=== PATIENT | female | born 1965 | race Caucasian/White ===

== ENCOUNTER 2016-04-22 20:38 | Emergency (ER) | payer MEDICAID ==
[2016-04-22] MEDS ORDERED: IBUPROFEN 600 MG TABLET PO STA (21:02)
[2016-04-22] MEDS ORDERED: NEOMYCIN/POLYMYX/HC OTIC DROPS LEFTEAR STA (21:02)
[2016-04-22] MEDS ORDERED: IBUPROFEN 600 MG TABLET PO ONE (21:19)
[2016-04-22] MEDS ORDERED: NEOMYCIN/POLYMYX/HC OTIC DROPS ONE (21:20)
== END 2016-04-22 21:31 | disposition home or self-care (01) ==
DX: H60.92 Unspecified otitis externa, left ear (principal)
CPT/HCPCS: 99282; 99283; A9270

== ENCOUNTER 2016-05-07 | Emergency (ER) | payer OTHER, MEDICAID | END 2016-05-07 14:31 | disposition home or self-care (01) | CPT/HCPCS: 1040M; 99282; 99283 ==

== ENCOUNTER 2016-05-09 21:48 | Outpatient (CLI) | payer MEDICAID | END 2016-05-09 21:49 | disposition home or self-care (01) | DX: G47.61 Periodic limb movement disorder (principal) ==

== ENCOUNTER 2016-05-22 13:01 | Outpatient (CLI) | payer MEDICAID | END 2016-05-22 13:02 | disposition home or self-care (01) | DX: G47.61 Periodic limb movement disorder (principal); R06.83 Snoring ==

== ENCOUNTER 2016-07-02 14:59 | Outpatient (CLI) | payer MEDICAID | END 2016-07-02 15:00 | disposition home or self-care (01) | DX: G47.33 Obstructive sleep apnea (adult) (pediatric) (principal) ==

== ENCOUNTER 2016-08-27 13:50 | Outpatient (CLI) | payer MEDICAID | END 2016-08-27 13:51 | disposition home or self-care (01) | DX: G47.33 Obstructive sleep apnea (adult) (pediatric) (principal) ==

== ENCOUNTER 2016-09-23 10:44 | Inpatient (IN) | payer MEDICAID ==
[2016-09-23 11:19] LABS: BASOPHILS # (AUTO) 0.1 10^3/uL (0.0-0.1); BASOPHILS % (AUTO) 0.5 %; EOSINOPHILS # (AUTO) 0.2 10^3/uL (0.0-0.7); EOSINOPHILS % (AUTO) 1.6 %; HCT - HEMATOCRIT 40.6 % (37.0-47.0); HGB - HEMOGLOBIN 13.6 g/dL (12.0-16.0); LYMPHOCYTES # (AUTO) 2.1 10^3/uL (1.5-3.5); LYMPHOCYTES % (AUTO) 16.5 %; MEAN CORPUSCULAR HEMOGLOBIN 29.4 pg (27.0-31.0); MEAN CORPUSCULAR HGB CONC 33.5 g/dL (32.0-36.0); MEAN CORPUSCULAR VOLUME 87.9 fL (81.0-99.0); MEAN PLATELET VOLUME 7.5 fL (7.9-10.8); MONOCYTES # (AUTO) 0.8 10^3/uL (0.0-1.0); MONOCYTES % (AUTO) 6.6 %; NEUTROPHILS # (AUTO) 9.6 10^3/uL (1.5-6.6); NEUTROPHILS % (AUTO) 74.8 %; RED BLOOD COUNT 4.62 10^6/uL (4.20-5.40); RED CELL DISTRIBUTION WIDTH 13.6 % (12.0-15.0); UNCORRECTED WHITE BLOOD COUNT 12.8 x10^3/uL; WHITE BLOOD COUNT 12.8 x10^3/uL (4.8-10.8)
[2016-09-23 11:31] LABS: BILIRUBIN,TOTAL 0.7 mg/dL (0.2-1.0); CALCIUM 9.1 mg/dL (8.5-10.3); CREATININE 0.8 mg/dL (0.4-1.0); POTASSIUM 4.2 mmol/L (3.5-5.0); TOTAL PROTEIN 7.7 g/dL (6.7-8.2)
[2016-09-23] MEDS ORDERED: HYDROmorphone 1 MG/ML SYRINGE IVP STA (11:53)
[2016-09-23] MEDS ORDERED: ONDANSETRON 4 MG/2 ML VIAL IVP STA (11:53)
[2016-09-23] MEDS ORDERED: HYDROmorphone 1 MG/ML SYRINGE ONE (11:55)
[2016-09-23] MEDS ORDERED: ONDANSETRON 4 MG/2 ML VIAL ONE (11:55)
--- NOTE | 2016-09-23 12:00 | ED Physician Documentation ---
History of Present Illness - Stated complaint Stated Complaint: ABD PX - Chief complaint Chief Complaint: Abd Pain - Additonal information Additional information: hx from pt 51 female hx diverticulitis L abd pain X 1 week getting worse no fever nausea no vomit dec BM, had to use mag citrate, small blood in stool prior surgery c section Review of Systems Constitutional: denies: Fever, Chills Cardiac: denies: Chest pain / pressure Respiratory: denies: Dyspnea GI: reports: Abdominal Pain, Nausea. denies: Vomiting, Diarrhea Immunocompromised: denies: Immunocompromised PD PAST MEDICAL HISTORY - Past Medical History Psych: Depression - Past Surgical History Past Surgical History: No - Present Medications Home Medications: Ambulatory Orders Medication Instructions Recorded Confirmed buPROPion [Wellbutrin Sr] 1 tab PO DAILY 04/22/16 09/23/16 - Allergies Allergies/Adverse Reactions: Allergies Allergy/AdvReac Type Severity Reaction Status Date / Time No Known Drug Allergies Allergy Verified 09/23/16 10:48 - Social History Does the pt smoke?: No Smoking Status: Never smoker Does the pt drink ETOH?: Yes Does the pt have substance abuse?: No - Immunizations Immunizations are current?: Yes - POLST Patient has POLST: No PD ED PE NORMAL - Vitals Vital signs reviewed: Yes - General General: Alert and oriented X 3 - HEENT HEENT: PERRL - Neck Neck: Supple, no meningeal sign - Cardiac Cardiac: RRR - Respiratory Respiratory: No respiratory distress, Clear bilaterally - Abdomen Abdomen: Soft, Other (TTP L side with rebound lower > upper) - Derm Derm: Normal color - Neuro Neuro: Alert and oriented X 3 Results - Vitals Vitals: Vital Signs - 24 hr 09/23/16 09/23/16 10:47 12:31 Temperature 36.9 C Heart Rate 96 77 Respiratory 18 18 Rate Blood Pressure 144/103 H 132/88 H O2 Saturation 99 97 Oxygen O2 Source Room air - Labs Labs: Laboratory Tests 09/23/16 09/23/16 09/23/16 11:11 11:11 11:15 WBC 12.8 H RBC 4.62 Hgb 13.6 Hct 40.6 MCV 87.9 MCH 29.4 MCHC 33.5 RDW 13.6 Plt Count 288 MPV 7.5 L Neut # 9.6 H Lymph # 2.1 [place] # 0.8 Eos # 0.2 Baso # 0.1 Absolute Nucleated RBC 0.00 Nucleated RBCs 0.0 Sodium 136 Potassium 4.2 Chloride 101 Carbon Dioxide 26 Anion Gap 9.0 BUN 10 Creatinine 0.8 Estimated GFR (MDRD) 75 L Glucose 97 Calcium 9.1 Total Bilirubin 0.7 AST 15 ALT 18 Alkaline Phosphatase 106 Total Protein 7.7 Albumin 3.9 Globulin 3.8 Albumin/Globulin Ratio 1.0 Lipase 20 L Urine Color YELLOW Urine Clarity HAZY Urine pH 6.0 Ur Specific [place] 1.020 Urine Protein NEGATIVE Urine Glucose (UA) NEGATIVE Urine Ketones NEGATIVE Urine Occult Blood SMALL H Urine Nitrite NEGATIVE Urine Bilirubin NEGATIVE Urine Urobilinogen 0.2 (NORMAL) Ur Leukocyte Esterase NEGATIVE Urine RBC 0-5 Urine WBC 0-3 Ur Squamous Epith Cells FEW Squamous Urine Bacteria None Seen Ur Microscopic Review INDICATED Urine Culture Comments NOT INDICATED - Rads (name of study) CT abd pelvis Radiology: See rad report (acute sigmoid diverticulitis) PD MEDICAL DECISION MAKING - ED course ED course: acute divertic, no abscess or perf on CT, but pt with distension and peritoneal signs on exam d/w pt and both feel prudent to admit for NPO, IVF, IV antibiotics until she starts to improve spoke to hospitalist who will admit - inpt per hospitalist Departure - Departure Disposition: 66 [facility] DC/Xfer Clinical Impression: Diverticulitis of gastrointestinal tract Condition: Good
[2016-09-23 12:39] LABS: BILIRUBIN,URINE NEGATIVE (NEGATIVE)
[2016-09-23 12:44] LABS: UA w/ MICROSCOPIC CHARGE YES
[2016-09-23] MEDS ORDERED: IOPAMIDOL-300 100 ML VIAL IVP ONE (12:58)
[2016-09-23 13:25] LABS: UR CULTURE IF IND NOT INDICATED; WBC,URINE 0-3 /HPF (0-5)
--- NOTE | 2016-09-23 13:30 | CT Preliminary Report ---
Exam: CT Abdomen/Pelvis W/ IMPRESSION: Acute sigmoid diverticulitis. No drainable fluid collection or free air. [facility] SITE ID: [id number]
--- NOTE | 2016-09-23 13:33 | CT Report ---
EXAM: CT ABDOMEN AND PELVIS EXAM DATE: 09/23/2016 01:02 PM. CLINICAL HISTORY: Left sided abdominal pain COMPARISONS: None. TECHNIQUE: Routine helical CT imaging was performed through the abdomen and pelvis. IV contrast: 100 mL Isovue 300. Enteric contrast: No. Reconstructions: Coronal and sagittal. In accordance with CT protocol optimization, one or more of the following dose reduction techniques w ere utilized for this exam: automated exposure control, adjustment of mA and/or KV based on patient s ize, or use of iterative reconstructive technique. FINDINGS: Lung Bases: Unremarkable. Liver: Normal. No masses. Gallbladder/Bile Ducts: Unremarkable. Spleen: Normal. Pancreas: Normal. Adrenal Glands: Normal. Kidneys: Grossly unremarkable. Presence of early excreted contrast in the calyces and collecting syst em limits evaluation for presence of nonobstructing intrarenal calculi. No hydronephrosis. Peritoneal Cavity/Bowel: There is inflammatory stranding and fluid surrounding a loop of sigmoid colo n, which contains multiple diverticula. Findings are in keeping with diverticulitis. There is no drai nable fluid collection or herbie free air. No bowel obstruction.. The appendix is well visualized and normal. Pelvic Organs: Normal. The bladder and visualized pelvic organs are within normal limits. Retroverted uterus. Vasculature: No aneurysms or other significant abnormality. Bones: No significant abnormality. Other: None. IMPRESSION: Acute sigmoid diverticulitis. No drainable fluid collection or free air. [facility] Referring Provider Line: [phone] SITE ID: [id number]
[2016-09-23] MEDS ORDERED: PIPERACILLIN/TAZOBACTAM 3.375 GM in SODIUM CHLORIDE 0.9% MINIBAG 100 ML IV STA (13:54)
[2016-09-23] MEDS ORDERED: SODIUM CHLORIDE FLUSH 0.9% 10 ML SYRINGE IVP PRN (14:43)
--- NOTE | 2016-09-23 14:53 | HISTORY & PHYSICAL EXAMINATION ---
Chief Complaint - Chief Complaint Chief Complaint: abdominal pain History of Present Illness - Admitted From Admitted From:: Emergency department - History Obtained From Records Reviewed: Yes History obtained from: Patient Exam Limitations: None - History of Present Illness HPI Comment/Other: PT has a HX of diverticulitis with 4 major episodes since 2009. She as a HX of Hyperlipidemia and depression. PT is otherwise healthy. PT stated she was at her usual state of health until 5 days ago. She noted LLQ pain with nausea, chills. She thought this was similar to prior diverticulitis and she tried to treat with improved diet and OTC medications for constipation. She had a BM and now loose stools. She did not have improvement in her symptoms. PT came to the ED for evaluation. CT scan performed was consistent with diverticulitis without perforation. PT was started on ABX in the ED. Review of Systems - Constitutional Constitutional: reports: Fever, Chills. denies: Fatigue, Malaise, Weakness, Diaphoresis - Eyes Eyes: denies: Pain, Irritation - Ears, Nose & Throat Ears, Nose & Throat: denies: Ear pain, Hearing loss, Hearing aids - Cardiovascular Cariovascular: denies: Irregular heart rate, Palpitations, Chest pain, Edema - Respiratory Respiratory: denies: Cough, Sputum production, Wheezing, SOB at rest - Gastrointestinal Gastrointestinal: reports: Abdominal pain, Abdominal distention, Constipation, Diarrhea, Nausea. denies: Black stools, Vomiting - Genitourinary Genitourinary: denies: Dysuria, Frequency, Urgency - Musculoskeletal Musculoskeletal: denies: Muscle pain, Back pain, Muscle aches - Integumentary Integumentary: denies: Rash, Lesions, Lumps - Neurological Neurological: denies: General weakness, Focal weakness, Headache, Dizziness - Psychiatric Psychiatric: reports: Depression. denies: Anxiety, Suicidal - Endocrine Endocrine: denies: Polyuria, Polydypsia - Hematologic/Lymphatic Hematologic/Lymphatic: denies: Anemia, Bruising History - Past Medical History Cardiovascular: reports: High cholesterol. denies: Congestive heart failure, Hypertension, Coronary artery disease Respiratory: denies: Asthma, COPD Neuro: denies: CVA, TIA Endocrine/Autoimmune: reports: None GI: reports: Diverticulitis [employer] ASSISTANT: reports: None, Ovarian cysts HEENT: reports: None Psych: reports: Depression Musculoskeletal: reports: None Derm: reports: None MRSA Hx?: No - Past Surgical History General: denies: Cholecystectomy, Appendectomy Cardiovascular: denies: Coronary stent, Valve replacement Neuro: denies: Craniotomy HEENT: denies: Cataracts, Myringotomy (tubes) Derm: denies: Skin grafts - Family & Social History Family History: Mother: Cancer, Father: CAD, Sister: Cancer Living arrangement: At home - Substance History Use: Uses substance without health or social issues: Alcohol, Cannabis - POLST Patient has POLST: No POLST Status: Full Code Meds/Allgy - Home Medications Home Medications: Ambulatory Orders Medication Instructions Recorded Confirmed buPROPion [Wellbutrin Sr] 1 tab PO DAILY 04/22/16 09/23/16 - Allergies Allergies/Adverse Reactions: Allergies Allergy/AdvReac Type Severity Reaction Status Date / Time No Known Drug Allergies Allergy Verified 09/23/16 10:48 Exam - Vital Signs Reviewed Vital Signs: Yes Vital Signs: Vital Signs x48h Temp Pulse Resp BP Pulse Ox 09/23/16 13:56 84 18 131/95 H 97 09/23/16 12:31 77 18 132/88 H 97 09/23/16 10:47 36.9 C 96 18 144/103 H 99 - Physical Exam General Appearance: positive: No acute distress, Alert Eyes Bilateral: positive: Normal inspection, PERRL, EOMI ENT: positive: ENT inspection nml, Pharynx nml Neck: positive: Nml inspection, No JVD Respiratory: positive: Chest non-tender, No respiratory distress, Breath sounds nml Cardiovascular: positive: Regular rate & rhythm, No murmur, No gallop Peripheral Pulses: positive: 2+ Abdomen: positive: Tenderness, Guarding Back: positive: Nml inspection Skin: positive: No rash, Warm, Dry Extremities: positive: Non-tender, Full ROM, No pedal edema Neurologic/Psychiatric: positive: Oriented x3, CN's nml (2-12) Conclusion/Plan - Problem List (1) Diverticulitis of gastrointestinal tract Conclusion/Plan: Recurrent issues since 2009/ Current flair started 5 days prior to admission. Elevated WBC in ED> Afebrile dose not meet sepsis criteria./ Abdomin is soft and tender. Plan Admit to the hospital. Start on ABX> Will treat pain as needed (2) Depression Conclusion/Plan: Continue home medications. - Lab Results Lab results reviewed: Yes Gerardo Bones: 09/23/16 11:11 09/23/16 11:11 - Diagnostic Imaging Results Diagnostic Imaging Results: positive: Final report reviewed Issues/Core Measures - Anticipated LOS Anticipated Stay Length: 2 or more midnights - DVT/VTE - Prophylaxis VTE/DVT Device ordered at admit?: Yes VTE/DVT Prophylaxis med ordered at admit?: No Not Ordered - Medical Reason: Contraindicated
[2016-09-23] MEDS: HYDROmorphone 1 MG/ML SYRINGE IVP PRN ×2 (16:45→23:50)
[2016-09-23] MEDS: SODIUM CHLORIDE 0.9% 1,000 ML IV SCH ×2 (16:59→23:52)
[2016-09-23] MEDS ORDERED: PIPERACILLIN/TAZOBACTAM 3.375 GM in SODIUM CHLORIDE 0.9% MINIBAG 100 ML IV SCH (17:00)
[2016-09-23] MEDS: metroNIDAZOLE 500 MG/100 ML 100 ML IV SCH ×2 (17:00→21:30)
[2016-09-23] MEDS: PIPERACILLIN/TAZOBACTAM 3.375 GM in SODIUM CHLORIDE 0.9% MINIBAG 100 ML IV SCH (19:26)
[2016-09-23] MEDS: SODIUM CHLORIDE FLUSH 0.9% 10 ML SYRINGE IVP SCH (20:56)
[2016-09-23] MEDS: PANTOPRAZOLE 40 MG VIAL IVP SCH (21:30)
[2016-09-24] MEDS: PIPERACILLIN/TAZOBACTAM 3.375 GM in SODIUM CHLORIDE 0.9% MINIBAG 100 ML IV SCH ×3 (01:27→18:30)
[2016-09-24] MEDS: metroNIDAZOLE 500 MG/100 ML 100 ML IV SCH ×4 (04:27→21:01)
[2016-09-24] MEDS: SODIUM CHLORIDE 0.9% 1,000 ML IV SCH (04:28)
[2016-09-24] MEDS: SODIUM CHLORIDE FLUSH 0.9% 10 ML SYRINGE IVP SCH ×3 (05:01→21:01)
[2016-09-24] MEDS: POLYETHYLENE GLYCOL 3350 17 GM PACKET PO SCH (08:27)
[2016-09-24] MEDS: buPROPion SR 100 MG TABLET PO SCH (08:36)
[2016-09-24] MEDS: PANTOPRAZOLE 40 MG VIAL IVP SCH ×2 (08:36→21:01)
[2016-09-24] MEDS: HYDROmorphone 1 MG/ML SYRINGE IVP PRN ×2 (08:44→22:13)
--- NOTE | 2016-09-24 10:34 | PROVIDER PROGRESS NOTE ---
Assessment/Plan - Problem List (1) Diverticulitis of gastrointestinal tract Assessment/Plan: Pain has improved with antibiotic therapy. PT has not had a BM since admission. She has passed gas. Denies nausea and vomiting. Plan:Continue current medical therapy. Remain NPO. Ambulate multiple times today. Will advance to clear liquids once she has BM. Anticiapte home 1-2 days. PT should have colonoscopy. Can be done as OP if diverticulitis resolves. - Current Meds Current Meds: Current Medications Generic Name Dose Route Start Last Admin Trade Name Freq PRN Reason Stop Dose Admin Bupropion HCl 100 mg 09/24/16 09:00 09/24/16 08:36 Wellbutrin Sr PO 100 mg DAILY THERESA Administration Hydromorphone HCl 1 mg 09/23/16 14:43 09/24/16 08:44 Dilaudid Inj IVP 1 mg Q2HR PRN Administration Pain 8 to 10 Sodium Chloride 1,000 mls @ 100 mls/hr 09/23/16 15:00 09/24/16 04:28 Normal Saline 0.9% IV 100 mls/hr .Q10H THERESA Administration Metronidazole 100 mls @ 100 mls/hr 09/23/16 16:00 09/24/16 10:20 Flagyl 500 Mg/100 Ml IV 100 mls/hr Q6H THERESA Administration Piperacillin Sod/Tazobactam 100 mls @ 25 mls/hr 09/23/16 18:00 09/24/16 01:27 Sod 3.375 gm/ Sodium Chloride IV 25 mls/hr Q8H THERESA Administration Pantoprazole Sodium 40 mg 09/23/16 21:00 09/24/16 08:36 Protonix IVP 40 mg BID THERESA Administration Polyethylene Glycol 17 gm 09/24/16 09:00 09/24/16 08:27 Miralax PO Not Given DAILY THERESA Sodium Chloride 10 ml 09/23/16 14:43 09/24/16 08:36 Normal Saline Flush 0.9% IVP 10 ml PRN PRN Administration NEEDED PER PROVIDER ORDERS Sodium Chloride 10 ml 09/23/16 22:00 09/24/16 05:01 Normal Saline Flush 0.9% IVP Not Given Q8HR THERESA - Lab Result Lab results reviewed: Yes Fish Bone Diagrams: 09/23/16 11:11 09/23/16 11:11 - Diagnostic Imaging Results Diagnostic Imaging Results: positive: Final report reviewed - Additional Planning Condition/Complexity: Stable My Orders: My Active Orders 09/23/16 18:00 RT [Home CPAP/BiPAP] [RC] .ONCE Piperacillin/Tazobactam [Zosyn] 3.375 gm Sodium Chloride 0.9% Minibag [Normal Saline 0.9% Minibag] 100 ml IV Q8H 09/23/16 21:00 Pantoprazole [Protonix] 40 mg IVP BID Plan Discussed with:: Patient Time Spent: 15-30 minutes Subjective - Subjective Patient Reports: Feeling Better Nursing Reports: No Complaints Objective Vital Signs: Vital Signs - 24 hr 09/23/16 09/23/16 09/23/16 15:18 15:59 17:40 Temperature 36.5 C 36.5 C Heart Rate 85 Heart Rate [ 80 Brachial] Heart Rate [ 80 Monitoring electrodes] Respiratory 18 16 16 Rate Blood Pressure 118/84 H Blood Pressure [Left Brachial artery] Blood Pressure 134/86 H 134/86 H [Right Brachial artery] O2 Saturation 97 99 99 09/24/16 09/24/16 00:31 08:10 Temperature 36.7 C 36.5 C Heart Rate Heart Rate [ 73 77 Brachial] Heart Rate [ Monitoring electrodes] Respiratory 16 16 Rate Blood Pressure Blood Pressure 113/74 [Left Brachial artery] Blood Pressure 109/71 [Right Brachial artery] O2 Saturation 97 97 Oxygen O2 Source Room air I&O (Last 24 Hrs): Intake and Output Totals x24h 09/22/16 09/23/16 09/24/16 23:59 23:59 23:59 Intake Total 542 1004 Balance 542 1004 General: Alert, Oriented x3 HEENT: PERRLA, EOMI Neuro: Alert, CN 2-12 Grossly Intact Cardiovascular: Regular rate, No murmurs Respiratory: No respiratory distress, Breath sounds nml Abdomen: Other (tenderness to LLQ. Improved from admission) Extremities: No edema, Normal pulses Skin: No rashes, No breakdown - Results Results: Laboratory Results WBC 12.8 x10^3/uL (4.8-10.8) H 09/23/16 11:11 RBC 4.62 10^6/uL (4.20-5.40) 09/23/16 11:11 Hgb 13.6 g/dL (12.0-16.0) 09/23/16 11:11 Hct 40.6 % (37.0-47.0) 09/23/16 11:11 MCV 87.9 fL (81.0-99.0) 09/23/16 11:11 MCH 29.4 pg (27.0-31.0) 09/23/16 11:11 MCHC 33.5 g/dL (32.0-36.0) 09/23/16 11:11 RDW 13.6 % (12.0-15.0) 09/23/16 11:11 Plt Count 288 10^3/uL (130-450) 09/23/16 11:11 MPV 7.5 fL (7.9-10.8) L 09/23/16 11:11 Neut # 9.6 10^3/uL (1.5-6.6) H 09/23/16 11:11 Lymph # 2.1 10^3/uL (1.5-3.5) 09/23/16 11:11 Person # 0.8 10^3/uL (0.0-1.0) 09/23/16 11:11 Eos # 0.2 10^3/uL (0.0-0.7) 09/23/16 11:11 Baso # 0.1 10^3/uL (0.0-0.1) 09/23/16 11:11 Absolute Nucleated RBC 0.00 x10^3/uL 09/23/16 11:11 Nucleated RBCs 0.0 /100WBC 09/23/16 11:11 Sodium 136 mmol/L (135-145) 09/23/16 11:11 Potassium 4.2 mmol/L (3.5-5.0) 09/23/16 11:11 Chloride 101 mmol/L (101-111) 09/23/16 11:11 Carbon Dioxide 26 mmol/L (21-32) 09/23/16 11:11 Anion Gap 9.0 (6-13) 09/23/16 11:11 BUN 10 mg/dL (6-20) 09/23/16 11:11 Creatinine 0.8 mg/dL (0.4-1.0) 09/23/16 11:11 Estimated GFR (MDRD) 75 (>89) L 09/23/16 11:11 Glucose 97 mg/dL (70-100) 09/23/16 11:11 Calcium 9.1 mg/dL (8.5-10.3) 09/23/16 11:11 Total Bilirubin 0.7 mg/dL (0.2-1.0) 09/23/16 11:11 AST 15 IU/L (10-42) 09/23/16 11:11 ALT 18 IU/L (10-60) 09/23/16 11:11 Alkaline Phosphatase 106 IU/L (42-121) 09/23/16 11:11 Total Protein 7.7 g/dL (6.7-8.2) 09/23/16 11:11 Albumin 3.9 g/dL (3.2-5.5) 09/23/16 11:11 Globulin 3.8 g/dL (2.1-4.2) 09/23/16 11:11 Albumin/Globulin Ratio 1.0 (1.0-2.2) 09/23/16 11:11 Lipase 20 U/L (22-51) L 09/23/16 11:11 Urine Color YELLOW 09/23/16 11:15 Urine Clarity HAZY (CLEAR) 09/23/16 11:15 Urine pH 6.0 PH (5.0-7.5) 09/23/16 11:15 Ur Specific [place] 1.020 (1.002-1.030) 09/23/16 11:15 Urine Protein NEGATIVE mg/dL (NEGATIVE) 09/23/16 11:15 Urine Glucose (UA) NEGATIVE mg/dL (NEGATIVE) 09/23/16 11:15 Urine Ketones NEGATIVE mg/dL (NEGATIVE) 09/23/16 11:15 Urine Occult Blood SMALL (NEGATIVE) H 09/23/16 11:15 Urine Nitrite NEGATIVE (NEGATIVE) 09/23/16 11:15 Urine Bilirubin NEGATIVE (NEGATIVE) 09/23/16 11:15 Urine Urobilinogen 0.2 (NORMAL) E.U./dL (NORMAL) 09/23/16 11:15 Ur Leukocyte Esterase NEGATIVE (NEGATIVE) 09/23/16 11:15 Urine RBC 0-5 /HPF (0-5) 09/23/16 11:15 Urine WBC 0-3 /HPF (0-5) 09/23/16 11:15 Ur Squamous Epith Cells FEW Squamous (<= Few) 09/23/16 11:15 Urine Bacteria None Seen /HPF (None Seen) 09/23/16 11:15 Ur Microscopic Review INDICATED 09/23/16 11:15 Urine Culture Comments NOT INDICATED 09/23/16 11:15
[2016-09-24] MEDS: ONDANSETRON 4 MG/2 ML VIAL IVP PRN (11:30)
[2016-09-25] MEDS: SODIUM CHLORIDE 0.9% 1,000 ML IV SCH ×3 (00:15→17:42)
[2016-09-25] MEDS: PIPERACILLIN/TAZOBACTAM 3.375 GM in SODIUM CHLORIDE 0.9% MINIBAG 100 ML IV SCH (01:59)
[2016-09-25] MEDS: metroNIDAZOLE 500 MG/100 ML 100 ML IV SCH ×4 (04:37→21:44)
[2016-09-25] MEDS: SODIUM CHLORIDE FLUSH 0.9% 10 ML SYRINGE IVP SCH ×3 (05:11→22:13)
[2016-09-25 06:21] LABS: BASOPHILS # (AUTO) 0.1 10^3/uL (0.0-0.1); BASOPHILS % (AUTO) 0.7 %; EOSINOPHILS # (AUTO) 0.2 10^3/uL (0.0-0.7); EOSINOPHILS % (AUTO) 2.7 %; HCT - HEMATOCRIT 37.2 % (37.0-47.0); HGB - HEMOGLOBIN 12.3 g/dL (12.0-16.0); LYMPHOCYTES # (AUTO) 1.6 10^3/uL (1.5-3.5); MEAN CORPUSCULAR HGB CONC 33.2 g/dL (32.0-36.0); MEAN CORPUSCULAR VOLUME 90.2 fL (81.0-99.0); MEAN PLATELET VOLUME 7.7 fL (7.9-10.8); MONOCYTES # (AUTO) 0.4 10^3/uL (0.0-1.0); MONOCYTES % (AUTO) 5.3 %; NEUTROPHILS # (AUTO) 5.2 10^3/uL (1.5-6.6); NEUTROPHILS % (AUTO) 69.3 %; RED BLOOD COUNT 4.12 10^6/uL (4.20-5.40); RED CELL DISTRIBUTION WIDTH 13.5 % (12.0-15.0); UNCORRECTED WHITE BLOOD COUNT 7.5 x10^3/uL; WHITE BLOOD COUNT 7.5 x10^3/uL (4.8-10.8)
[2016-09-25] MEDS: POLYETHYLENE GLYCOL 3350 17 GM PACKET PO SCH (08:55)
[2016-09-25] MEDS: buPROPion SR 100 MG TABLET PO SCH (09:07)
--- NOTE | 2016-09-25 09:18 | PROVIDER PROGRESS NOTE ---
Assessment/Plan - Problem List (1) Diverticulitis of gastrointestinal tract Assessment/Plan: 51 yo female with multiple medical problems now with diverticulitis resolving Continue current medical management Advance diet as tolerated. Continue IV abx Primary medical team to manage. - Current Meds Current Meds: Current Medications Generic Name Dose Route Start Last Admin Trade Name Freq PRN Reason Stop Dose Admin Bupropion HCl 100 mg 09/24/16 09:00 09/25/16 09:07 Wellbutrin Sr PO 100 mg DAILY THERESA Administration Hydromorphone HCl 1 mg 09/23/16 14:43 09/24/16 22:13 Dilaudid Inj IVP 1 mg Q2HR PRN Administration Pain 8 to 10 Sodium Chloride 1,000 mls @ 100 mls/hr 09/23/16 15:00 09/25/16 00:15 Normal Saline 0.9% IV 100 mls/hr .Q10H THERESA Administration Metronidazole 100 mls @ 100 mls/hr 09/23/16 16:00 09/25/16 04:37 Flagyl 500 Mg/100 Ml IV 100 mls/hr Q6H THERESA Administration Levofloxacin 100 mls @ 100 mls/hr 09/25/16 08:00 09/25/16 09:07 Levaquin 500 Mg/100 Ml IV 100 mls/hr Q24H THERESA Administration Ondansetron HCl 4 mg 09/23/16 14:43 09/24/16 11:30 Zofran Inj IVP 4 mg Q6HR PRN Administration Nausea / Vomiting Polyethylene Glycol 17 gm 09/24/16 09:00 09/25/16 08:55 Miralax PO Not Given DAILY THERESA Sodium Chloride 10 ml 09/23/16 14:43 09/24/16 08:36 Normal Saline Flush 0.9% IVP 10 ml PRN PRN Administration NEEDED PER PROVIDER ORDERS Sodium Chloride 10 ml 09/23/16 22:00 09/25/16 05:11 Normal Saline Flush 0.9% IVP Not Given Q8HR THERESA - Lab Result Lab results reviewed: Yes Fish Bone Diagrams: 09/25/16 06:15 09/23/16 11:11 Subjective - Subjective Patient Reports: Feeling Better (Patient seen at bedside this am. States feeling better. Has not had BM yet. Tolerating clears. Ambulating. C/O of mild LLQ pain) Nursing Reports: No Complaints Objective Vital Signs: Vital Signs - 24 hr 09/24/16 09/25/16 09/25/16 17:03 01:25 08:40 Temperature 36.6 C 36.3 C L 36.5 C Heart Rate [ 80 68 70 Brachial] Respiratory 16 16 16 Rate Blood Pressure 101/62 114/76 [Left Brachial artery] Blood Pressure 127/85 H [Right Brachial artery] O2 Saturation 99 95 99 Oxygen O2 Source Room air I&O (Last 24 Hrs): Intake and Output Totals x24h 09/23/16 09/24/16 09/25/16 23:59 23:59 23:59 Intake Total 542 1676 1314 Output Total 400 Balance 542 1276 1314 General: Alert, Oriented x3 Neuro: Alert Cardiovascular: Regular rate Respiratory: Breath sounds nml Abdomen: Soft (+ Bs, mild TTP LLQ, no rebound or guarding) - Results Results: Laboratory Results WBC 7.5 x10^3/uL (4.8-10.8) 09/25/16 06:15 RBC 4.12 10^6/uL (4.20-5.40) L 09/25/16 06:15 Hgb 12.3 g/dL (12.0-16.0) 09/25/16 06:15 Hct 37.2 % (37.0-47.0) 09/25/16 06:15 MCV 90.2 fL (81.0-99.0) 09/25/16 06:15 MCH 30.0 pg (27.0-31.0) 09/25/16 06:15 MCHC 33.2 g/dL (32.0-36.0) 09/25/16 06:15 RDW 13.5 % (12.0-15.0) 09/25/16 06:15 Plt Count 253 10^3/uL (130-450) 09/25/16 06:15 MPV 7.7 fL (7.9-10.8) L 09/25/16 06:15 Neut # 5.2 10^3/uL (1.5-6.6) 09/25/16 06:15 Lymph # 1.6 10^3/uL (1.5-3.5) 09/25/16 06:15 [place] # 0.4 10^3/uL (0.0-1.0) 09/25/16 06:15 Eos # 0.2 10^3/uL (0.0-0.7) 09/25/16 06:15 Baso # 0.1 10^3/uL (0.0-0.1) 09/25/16 06:15 Absolute Nucleated RBC 0.00 x10^3/uL 09/25/16 06:15 Nucleated RBCs 0.0 /100WBC 09/25/16 06:15 Sodium 136 mmol/L (135-145) 09/23/16 11:11 Potassium 4.2 mmol/L (3.5-5.0) 09/23/16 11:11 Chloride 101 mmol/L (101-111) 09/23/16 11:11 Carbon Dioxide 26 mmol/L (21-32) 09/23/16 11:11 Anion Gap 9.0 (6-13) 09/23/16 11:11 BUN 10 mg/dL (6-20) 09/23/16 11:11 Creatinine 0.8 mg/dL (0.4-1.0) 09/23/16 11:11 Estimated GFR (MDRD) 75 (>89) L 09/23/16 11:11 Glucose 97 mg/dL (70-100) 09/23/16 11:11 Calcium 9.1 mg/dL (8.5-10.3) 09/23/16 11:11 Total Bilirubin 0.7 mg/dL (0.2-1.0) 09/23/16 11:11 AST 15 IU/L (10-42) 09/23/16 11:11 ALT 18 IU/L (10-60) 09/23/16 11:11 Alkaline Phosphatase 106 IU/L (42-121) 09/23/16 11:11 Total Protein 7.7 g/dL (6.7-8.2) 09/23/16 11:11 Albumin 3.9 g/dL (3.2-5.5) 09/23/16 11:11 Globulin 3.8 g/dL (2.1-4.2) 09/23/16 11:11 Albumin/Globulin Ratio 1.0 (1.0-2.2) 09/23/16 11:11 Lipase 20 U/L (22-51) L 09/23/16 11:11 Urine Color YELLOW 09/23/16 11:15 Urine Clarity HAZY (CLEAR) 09/23/16 11:15 Urine pH 6.0 PH (5.0-7.5) 09/23/16 11:15 Ur Specific [place] 1.020 (1.002-1.030) 09/23/16 11:15 Urine Protein NEGATIVE mg/dL (NEGATIVE) 09/23/16 11:15 Urine Glucose (UA) NEGATIVE mg/dL (NEGATIVE) 09/23/16 11:15 Urine Ketones NEGATIVE mg/dL (NEGATIVE) 09/23/16 11:15 Urine Occult Blood SMALL (NEGATIVE) H 09/23/16 11:15 Urine Nitrite NEGATIVE (NEGATIVE) 09/23/16 11:15 Urine Bilirubin NEGATIVE (NEGATIVE) 09/23/16 11:15 Urine Urobilinogen 0.2 (NORMAL) E.U./dL (NORMAL) 09/23/16 11:15 Ur Leukocyte Esterase NEGATIVE (NEGATIVE) 09/23/16 11:15 Urine RBC 0-5 /HPF (0-5) 09/23/16 11:15 Urine WBC 0-3 /HPF (0-5) 09/23/16 11:15 Ur Squamous Epith Cells FEW Squamous (<= Few) 09/23/16 11:15 Urine Bacteria None Seen /HPF (None Seen) 09/23/16 11:15 Ur Microscopic Review INDICATED 09/23/16 11:15 Urine Culture Comments NOT INDICATED 09/23/16 11:15
--- NOTE | 2016-09-25 09:27 | PROVIDER PROGRESS NOTE ---
Subjective - Prog Note Date Prog Note Date: 09/25/16 Prog Note Time: 09:25 - Subjective Pt reports feeling: Improved ("you couldnt have done that yesterday." (firm palpation of LLQ). still hurts right here > points (and puts my hand on LLQ). no emesis, nausea, hasnt moved bowels yet, excited about the clear liquids Later ~ 2:30 pm walking in halls w/ IV, feeling nauseated, is interested in starting full liquid) Current Medications - Current Medications Current Medications: Active Medications Generic Name Dose Route Start Last Admin Trade Name Freq PRN Reason Stop Dose Admin Bupropion HCl 100 mg 09/24/16 09:00 09/25/16 09:07 Wellbutrin Sr PO 100 mg DAILY THERESA Administration Hydromorphone HCl 1 mg 09/23/16 14:43 09/24/16 22:13 Dilaudid Inj IVP 1 mg Q2HR PRN Administration Pain 8 to 10 Sodium Chloride 1,000 mls @ 100 mls/hr 09/23/16 15:00 09/25/16 00:15 Normal Saline 0.9% IV 100 mls/hr .Q10H THERESA Administration Metronidazole 100 mls @ 100 mls/hr 09/23/16 16:00 09/25/16 04:37 Flagyl 500 Mg/100 Ml IV 100 mls/hr Q6H THERESA Administration Levofloxacin 100 mls @ 100 mls/hr 09/25/16 08:00 09/25/16 09:07 Levaquin 500 Mg/100 Ml IV 100 mls/hr Q24H THERESA Administration Ondansetron HCl 4 mg 09/23/16 14:43 09/24/16 11:30 Zofran Inj IVP 4 mg Q6HR PRN Administration Nausea / Vomiting Polyethylene Glycol 17 gm 09/24/16 09:00 09/25/16 08:55 Miralax PO Not Given DAILY THERESA Sodium Chloride 10 ml 09/23/16 14:43 09/24/16 08:36 Normal Saline Flush 0.9% IVP 10 ml PRN PRN Administration NEEDED PER PROVIDER ORDERS Sodium Chloride 10 ml 09/23/16 22:00 09/25/16 05:11 Normal Saline Flush 0.9% IVP Not Given Q8HR THERESA buPROPion [Wellbutrin Sr] 100 mg PO DAILY 01/08/17 Objective - Vital Signs/Intake & Output Reviewed Vital Signs: Yes Vital Signs: Vital Signs x48h Temp Pulse Resp BP Pulse Ox 09/25/16 08:40 36.5 C 70 16 127/85 H 99 Intake & Output: Intake & Output 09/22/16 09/23/16 09/24/16 09/25/16 23:59 23:59 23:59 23:59 Intake Total 542 1676 1314 Output Total 400 Balance 542 1276 1314 - Objective General Appearance: positive: No acute distress, Other (sitting up in bed taking clear liquid tray contents non toxic appearing, looks comfortable alert , oriented) Respiratory: positive: Chest non-tender, No respiratory distress, Breath sounds nml Cardiovascular: positive: Regular rate & rhythm Abdomen: positive: Other (rounded abdomen, soft, present but hypoactive bowel sounds , tender to palpation LLQ, no guarding, but winces on deep palpation at LLQ, otherwise able to palpate) Skin: positive: Warm, Dry (no edema) Neurologic/Psychiatric: positive: Oriented x3, Motor nml, Mood/affect nml - Lab Results Fish Bones: 09/25/16 06:15 09/23/16 11:11 Other Labs: Lab Results x24hrs 09/25/16 Range/Units 06:15 WBC 7.5 (4.8-10.8) x10^3/uL RBC 4.12 L (4.20-5.40) 10^6/uL Hgb 12.3 (12.0-16.0) g/dL Hct 37.2 (37.0-47.0) % MCV 90.2 (81.0-99.0) fL MCH 30.0 (27.0-31.0) pg MCHC 33.2 (32.0-36.0) g/dL RDW 13.5 (12.0-15.0) % Plt Count 253 (130-450) 10^3/uL MPV 7.7 L (7.9-10.8) fL Neut # 5.2 (1.5-6.6) 10^3/uL Lymph # 1.6 (1.5-3.5) 10^3/uL [place] # 0.4 (0.0-1.0) 10^3/uL Eos # 0.2 (0.0-0.7) 10^3/uL Baso # 0.1 (0.0-0.1) 10^3/uL Absolute Nucleated RBC 0.00 x10^3/uL Nucleated RBCs 0.0 /100WBC - Diagnostic Imaging Diagnostic Imaging Results: positive: Final report reviewed (CT from 09/23 reviewed; stranding/ fluid around loop of sigmoid colon which has multiple diverticula, c/w diverticulitis; no drainable fluid collection, no free air) Assessment/Plan - Problem List (1) Diverticulitis of gastrointestinal tract Impression: improving, pain improving, (but still present) and leukocytosis improved (12.8> 7.5). WAdmitted on zosyn/ flagyl; no indication for dual anaerobe coverage. Change to levo/flagyl (and PO levo/flagyl on d/c) recheck WBC in am continue serial exams, tolerated advance to clears this am , and for lunch, and advanced to fulls at dinner changing IV dilaudid (which she felt was too strong) to tramadol reeval in am and anticipate likely able to go Has been seen by general surgery, and she knows to contact Dr[facility] for surgical consult(since has had several episodes Depression: continue wellbutrin
[2016-09-25] MEDS: ONDANSETRON 4 MG/2 ML VIAL IVP PRN (17:00)
[2016-09-25] MEDS ORDERED: traMADol 50 MG TABLET PO PRN (18:04)
[2016-09-25] MEDS ORDERED: ZOLPIDEM 5 MG TABLET PO PRN (22:35)
[2016-09-26] MEDS: SODIUM CHLORIDE 0.9% 1,000 ML IV SCH (04:45)
[2016-09-26] MEDS: metroNIDAZOLE 500 MG/100 ML 100 ML IV SCH ×2 (04:45→10:39)
[2016-09-26] MEDS: SODIUM CHLORIDE FLUSH 0.9% 10 ML SYRINGE IVP SCH (05:58)
[2016-09-26 06:46] LABS: HCT - HEMATOCRIT 38.6 % (37.0-47.0); MEAN CORPUSCULAR HEMOGLOBIN 30.3 pg (27.0-31.0); MEAN CORPUSCULAR HGB CONC 33.8 g/dL (32.0-36.0); MEAN CORPUSCULAR VOLUME 89.6 fL (81.0-99.0); RED BLOOD COUNT 4.31 10^6/uL (4.20-5.40); RED CELL DISTRIBUTION WIDTH 13.5 % (12.0-15.0); WHITE BLOOD COUNT 7.8 x10^3/uL (4.8-10.8)
--- NOTE | 2016-09-26 09:46 | Discharge Plan ---
Discharge Plan Disposition: 01 Home, Self Care Condition: Stable Prescriptions: traMADol [Ultram] 50 mg PO Q4HR PRN #15 tablet PRN Reason: Pain Metronidazole [Flagyl] 500 mg PO Q8H #20 tablet Levofloxacin [Levaquin] 750 mg PO DAILY #6 tablet Diet: Regular (full liquid diet for the next day then advance to soft easily digested foods once pain fully resolved) Activity Restrictions: No Restrictions Shower Restrictions: No Driving Restrictions: No Weight Bearing: Full Weight Additional Instructions or Follow Up instructions: Diverticulitis You came to the hospital with several days of abdominal pain similar to prior episode of diverticulitis. CT abdomen confirmed diverticulitis (inflammatory stranding/fluid surrounding loop of sigmoid coon (left lower quadrant) No abscess YOu had a modestly elevated white blood cell count (12.8) which improved (7.8 on day of discharge) with antibiotics You will continue antibioticsx 7 more days levofloxacin 1x daily, and flagyl 500 mg every 8 hrs) (already got todays dose levofloxacin Call Dr. Masters office for discussion of possible surgical intervention for recurrent diverticulitis since you have had more than 1 episode at a relatively young age [phone] No Smoking: If you smoke, Please STOP! Call for help. Follow-up with: Drea Mondragon [employer] [Primary Care Provider] - 1-2 Days (ensure symptoms continue to improve (can likely do this over the phone as well, as long as no fever/chills, no new pain Consult with Dr. Myers as trini lemus)
[2016-09-26 10:02] VITALS: BP 135/86
[2016-09-26] MEDS: POLYETHYLENE GLYCOL 3350 17 GM PACKET PO SCH (10:08)
[2016-09-26] MEDS: buPROPion SR 100 MG TABLET PO SCH (10:30)
[2016-09-26] MEDS ORDERED: metroNIDAZOLE 250 MG TABLET PO SCH (11:00)
[2016-09-26] MEDS ORDERED: levoFLOXacin 250 MG TABLET PO SCH (11:00)
--- NOTE | 2016-09-26 13:11 | DISCHARGE SUMMARY ---
DATE OF ADMISSION: 09/23/2016 DATE OF DISCHARGE: 09/26/2016 PRIMARY CARE PHYSICIAN: Drea Mondragon DISCHARGE DIAGNOSIS: Diverticulitis. PROCEDURES: None. CONSULTATIONS: Dr. Alex Mcmillan,General Surgery. DIAGNOSTIC IMAGING STUDIES: CT abdomen and pelvis 09/23/2016 ; inflammatory stranding and fluid surrounding a loop of sigmoid colon which contains multiple diverticula consistent with diverticulitis. No drainable fluid collection or free herbie air. No obstruction. LABORATORY STUDIES: admission; Na 136, K 4.2, chloride 101, bicarbonate 26, BUN 10, Cr 0.8, glucose 97, lipase 20, AST and ALT 15 and 18 respectively, total protein 7.7, total bilirubin 0.7. CBC on admission showed white count 12.8 , hemoglobin 13.6, hematocrit 40.6, platelets 288,000. White count reduced to 7.8 on 09/25/2016 and remained reduced at 7.8 on the day of discharge, September 26. UA unremarkable. BRIEF HOSPITAL COURSE: The patient is a 51-year-old female who presented to the emergency room after approximately 5 days of left lower quadrant pain, which was reminiscent of her discomfort when she had a prior episode of diverticulitis. She reports having had 4 episodes since 2009 and has not previously had any discussion with a surgeon. She tried to treat this at home with a conservative diet and [id number] medicines for constipation; however, it did not improve. She was afebrile, but had had a modest leukocytosis , she was nontoxic-appearing, had left lower quadrant discomfort on minimal palpation. CT of the abdomen and pelvis was consistent with a sigmoid diverticulitis. She was treated with IV antibiotics and bowel rest and IV fluids. She tolerated diet advance to clears then subsequently to fulls with a resolution of leukocytosis and marked improvement of her abdominal pain and also did move her bowels twice on the night of 09/25/2016, and was feeling much improved on 09/26/2016 and ready for discharge. She will complete an additional 6 days of oral levofloxacin and Flagyl. Dr. Mcmillan of Surgery consulted and recommended she have an outpatient consultation with Dr. Myers, given that at her relatively young age she has had several episodes of diverticulitis, for possible surgical management to prevent future recurrences. She has the office number for Dr. Myers. She is aware to advance her diet only when she is completely comfortable, and will take another day of full liquids. DISCHARGE MEDICATIONS 1. Levofloxacin 750 mg once daily for 6 more doses, through October 02. Of note, she did receive today's dose in the hospital. 2. Flagyl 500 mg orally 3 times daily or every 8 hours for an additional 6 days ; this takes her through October 02. 3. Bupropion 100 mg once daily. 4. Tramadol 50 mg every 4 hours if needed for pain. She was given a small number of these, 15, in the event that there is any increased pain, but she is to also call primary if that is the case. PHYSICAL EXAMINATION ON DAY OF DISCHARGE VITAL SIGNS: Afebrile at 36.4, heart rate 71, blood pressure 135/86, respiratory rate 16, 97% to 100% oxygenation on room air. GENERAL: She is a very pleasant female who appears a little bit younger than stated age. She appears comfortable. She is smiling. She has completed her full liquid breakfast tray contents. She was also seen ambulating the halls yesterday. CHEST: Clear to auscultation with unlabored respirations. HEART: Regular S1, S2 with no appreciable extra sounds. ABDOMEN: Soft with quiet but present bowel sounds. She has only "mild" soreness at the left lower quadrant whereas she still grimaced and had tenderness on the prior day. EXTREMITIES: There is no lower extremity edema. JOB #: [id number] EXT JOB #:[id number] MTDD
== END 2016-09-26 11:30 | disposition home or self-care (01) | DRG 392 ==
LOC: ED 10:44 → MS 14:43
PROVIDERS: ADMIT Physician Assistant; ATTEND Nurse Practitioner
DX: K57.32 Diverticulitis of large intestine without perforation or abscess without bleeding (principal); F32.9 Major depressive disorder, single episode, unspecified
CPT/HCPCS: 36415; 74177; 80053; 81001; 81003; 83690; 85025; 87086; 96374; 96375; 99283; 99284

== ENCOUNTER 2016-10-19 11:01 | Outpatient (CLI) | payer MEDICAID | END 2016-10-19 11:02 | disposition home or self-care (01) | LOC: LAB.N 11:01 | PROVIDERS: ATTEND Nurse Practitioner Gerontology | DX: Z11.3 Encounter for screening for infections with a predominantly sexual mode of transmission (principal) | CPT/HCPCS: 36415; 86780; 86803; 87389 ==

== ENCOUNTER 2016-10-23 07:05 | Outpatient (CLI) | payer MEDICAID ==
[2016-10-23] MEDS ORDERED: IOPAMIDOL-300 50 ML VIAL PO ONE (09:15)
[2016-10-23] MEDS ORDERED: IOPAMIDOL-300 100 ML VIAL IVP ONE (09:15)
--- NOTE | 2016-10-23 12:22 | CT Report ---
CT ABDOMEN AND PELVIS WITH CONTRAST: 10/23/2016 CLINICAL INDICATION: Followup diverticulitis. COMPARISON: 09/23/2016 TECHNIQUE: Axial CT images of the abdomen and pelvis were obtained with 100 mL Isovue-300 intravenou sly as well as oral contrast. In accordance with CT protocol optimization, one or more of the following dose reduction techniques w ere utilized for this exam: automated exposure control, adjustment of mA and/or KV based on patient size, or use of iterative reconstructive technique. FINDINGS: Limited evaluation of the lung bases is unremarkable. Abdomen: The liver, spleen, pancreas, kidneys, and adrenal glands are unremarkable. The gallbladder is not dilated. No bowel dilatation, free gas, or free fluid is present. No abdominal adenopathy i s seen. Pelvis: Inflammation and wall thickening of the proximal sigmoid colon have improved significantly. The uterus is heterogeneous, likely representing multiple leiomyomas. No free gas, free fluid, or p elvic adenopathy is seen. IMPRESSION: SIGNIFICANT INTERVAL IMPROVEMENT IN INFLAMMATION AND WALL THICKENING OF THE PROXIMAL SIG MOID COLON. NO EVIDENCE OF PERFORATION OR ABSCESS FORMATION. JOB #: [id number] EXT JOB #:[id number]
== END 2016-10-23 07:06 | disposition home or self-care (01) ==
LOC: DI 07:05
PROVIDERS: ATTEND Surgery
DX: K57.92 Diverticulitis of intestine, part unspecified, without perforation or abscess without bleeding (principal)
CPT/HCPCS: 74177; Q9967

== ENCOUNTER 2016-11-08 11:32 | Day surgery (SDC) | payer MEDICAID ==
[2016-11-08] MEDS ORDERED: fentaNYL 100 MCG/2 ML VIAL IVP ONE (13:24)
[2016-11-08] MEDS ORDERED: ONDANSETRON 4 MG/2 ML VIAL IVP ONE (13:24)
[2016-11-08] MEDS ORDERED: MIDAZOLAM 2 MG/2 ML VIAL IVP ONE (13:24)
[2016-11-08] MEDS ORDERED: LACTATED RINGERS 1,000 ML IV ONE (13:26)
[2016-11-08 14:29] VITALS: BP 114/86
== END 2016-11-08 11:33 | disposition home or self-care (01) ==
LOC: SDS 11:32
PROVIDERS: ATTEND Surgery
PROC: 0DBM8ZX Excision of Descending Colon, Via Natural or Artificial Opening Endoscopic, Diagnostic (ICD-10-PCS; principal; 2016-11-08 12:30)
DX: K63.5 Polyp of colon (principal); K57.30 Diverticulosis of large intestine without perforation or abscess without bleeding; K64.8 Other hemorrhoids; K92.89 Other specified diseases of the digestive system; Z87.19 Personal history of other diseases of the digestive system; E66.9 Obesity, unspecified; E78.00 Pure hypercholesterolemia, unspecified; G47.30 Sleep apnea, unspecified; Z68.34 Body mass index [BMI] 34.0-34.9, adult
CPT/HCPCS: 45385; J7120; 88305

== ENCOUNTER 2016-11-10 14:07 | Emergency (ER) | payer MEDICAID ==
[2016-11-10] MEDS ORDERED: ONDANSETRON 4 MG/2 ML VIAL IVP STA (14:34)
[2016-11-10] MEDS ORDERED: HYDROmorphone 1 MG/ML SYRINGE IVP STA (14:34)
[2016-11-10] MEDS ORDERED: ONDANSETRON 4 MG/2 ML VIAL ONE (15:05)
[2016-11-10] MEDS ORDERED: HYDROmorphone 1 MG/ML SYRINGE ONE (15:05)
[2016-11-10 15:14] LABS: BASOPHILS # (AUTO) 0.1 10^3/uL (0.0-0.1); BASOPHILS % (AUTO) 0.6 %; EOSINOPHILS # (AUTO) 0.3 10^3/uL (0.0-0.7); EOSINOPHILS % (AUTO) 3.1 %; HCT - HEMATOCRIT 42.1 % (37.0-47.0); HGB - HEMOGLOBIN 14.4 g/dL (12.0-16.0); LYMPHOCYTES # (AUTO) 2.4 10^3/uL (1.5-3.5); MEAN CORPUSCULAR HGB CONC 34.2 g/dL (32.0-36.0); MEAN CORPUSCULAR VOLUME 87.7 fL (81.0-99.0); MEAN PLATELET VOLUME 8.1 fL (7.9-10.8); MONOCYTES # (AUTO) 0.5 10^3/uL (0.0-1.0); NEUTROPHILS # (AUTO) 5.4 10^3/uL (1.5-6.6); NEUTROPHILS % (AUTO) 62.3 %; RED CELL DISTRIBUTION WIDTH 13.5 % (12.0-15.0); UNCORRECTED WHITE BLOOD COUNT 8.7 x10^3/uL; WHITE BLOOD COUNT 8.7 x10^3/uL (4.8-10.8)
[2016-11-10 15:17] LABS: CALCIUM 9.6 mg/dL (8.5-10.3); CREATININE 0.8 mg/dL (0.4-1.0); POTASSIUM 3.7 mmol/L (3.5-5.0)
--- NOTE | 2016-11-10 15:22 | XRAY Preliminary Report ---
Exam: XR Abdomen 2 View IMPRESSION: No evidence of ileus or obstruction. Small amount of stool within the colon. [facility] SITE ID: [id number]
--- NOTE | 2016-11-10 15:24 | XRAY Report ---
EXAM: ABDOMEN RADIOGRAPHY EXAM DATE: 11/10/2016 02:50 PM. CLINICAL HISTORY: Abdominal pain, 2 days status post colonoscopy. COMPARISON: None. TECHNIQUE: 2 views. FINDINGS: Lung Bases: Unremarkable. Bowel Gas Pattern: No dilated loops of large or small intestine. Small amount of stool within the col on. Free Air: None. Other: None. IMPRESSION: No evidence of ileus or obstruction. Small amount of stool within the colon. ELISE Referring Provider Line: [phone] SITE ID: [id number]
--- NOTE | 2016-11-10 16:05 | ED Physician Documentation ---
PD HPI ABD PAIN - Stated complaint Stated Complaint: POST SURG COMPLICATIONS - Chief complaint Chief Complaint: Abd Pain - History obtained from History obtained from: Patient - History of Present Illness Timing - onset: Today Quality: Pain Location: LLQ Associated symptoms: Nausea. No: Fever, Vomiting Recently seen: Surgery (2 days status post colonoscopy with polyp resection.) - Additional information Additional information: The patient is a 51-year-old female who has a history of diverticular disease, and underwent colonoscopy with polyp resection 2 days ago, and who presents today after having a dark bloody stool and associated left-sided abdominal pain. She reports the stool was cranberry colored. She reports associated nausea, without vomiting. She denies fever, lightheadedness, or dysuria. Past surgical history is also significant for . Review of Systems Constitutional: denies: Fever, Fatigue Nose: denies: Congestion Throat: denies: Sore throat Cardiac: denies: Chest pain / pressure Respiratory: denies: Dyspnea, Cough GI: reports: Abdominal Pain, Nausea, Bloody / black stool. denies: Vomiting : denies: Dysuria Skin: denies: Rash Musculoskeletal: denies: Back pain Neurologic: denies: Focal weakness, Numbness, Headache PD PAST MEDICAL HISTORY - Past Medical History Past Medical History: Yes Cardiovascular: High cholesterol Respiratory: Sleep apnea, CPAP use, Other Endocrine/Autoimmune: None GI: Hemorrhoids, Diverticulitis SPECIAL EDUCATION ASSISTANT: None, Ovarian cysts : None HEENT: None Psych: Depression Musculoskeletal: None Derm: None - Past Surgical History Past Surgical History: Yes General: Colonoscopy (2 days ago) /SPECIAL EDUCATION ASSISTANT: section, Breast reduction - Present Medications Home Medications: Ambulatory Orders Medication Instructions Recorded Confirmed buPROPion [Wellbutrin Sr] 100 mg PO DAILY 04/22/16 11/08/16 Cyclosporine [Restasis] 1 drops EACHEYE BID 11/07/16 11/08/16 Rosuvastatin Calcium [Crestor] 20 mg PO DAILY 11/08/16 11/08/16 HYDROcod/ACETAM 5/325 [Vicodin 1 - 2 ea PO Q6H PRN #15 tablet 11/10/16 5/325] Promethazine [Phenergan] 25 - 50 mg PO Q6H PRN #10 tab 11/10/16 - Allergies Allergies/Adverse Reactions: Allergies Allergy/AdvReac Type Severity Reaction Status Date / Time tramadol HCl * [From Ultram] AdvReac Hallucinati Verified 11/10/16 14:16 ons - Social History Does the pt smoke?: No Smoking Status: Never smoker Does the pt drink ETOH?: Yes Does the pt have substance abuse?: No - Immunizations Immunizations are current?: Yes - POLST Patient has POLST: No POLST Status: Full Code PD ED PE NORMAL - Vitals Vital signs reviewed: Yes (mild hypertension initially.) - General General: Alert and oriented X 3, Well developed/nourished, Other (overweight) - HEENT HEENT: Atraumatic, EOMI, Pharynx benign - Neck Neck: No adenopathy, No JVD - Cardiac Cardiac: RRR, No murmur - Respiratory Respiratory: No respiratory distress, Clear bilaterally - Abdomen Abdomen: Normal bowel sounds, Soft, Non distended, No organomegaly, Other (Mild tenderness to palpation in the left mid abdomen, without rebound tenderness or guarding.) - Rectal Rectal: Other (Stool is brown and heme positive.) - Back Back: No CVA TTP - Derm Derm: No rash - Extremities Extremities: No edema, No calf tenderness / cord - Neuro Neuro: Alert and oriented X 3, No motor deficit, Normal speech PD ED PE EXPANDED - Rectal Rectal: Heme Occult Pos - QC + Results - Vitals Vitals: Vital Signs - 24 hr 11/10/16 11/10/16 14:11 16:15 Temperature 36.9 C 36.4 C L Heart Rate 68 83 Respiratory 18 17 Rate Blood Pressure 148/98 H 127/86 H O2 Saturation 97 96 Oxygen O2 Source Room air - Labs Labs: Laboratory Tests 11/10/16 11/10/16 15:00 15:00 WBC 8.7 RBC 4.80 Hgb 14.4 Hct 42.1 MCV 87.7 MCH 30.0 MCHC 34.2 RDW 13.5 Plt Count 266 MPV 8.1 Neut # 5.4 Lymph # 2.4 [place] # 0.5 Eos # 0.3 Baso # 0.1 Absolute Nucleated RBC 0.00 Nucleated RBCs 0.0 Sodium 139 Potassium 3.7 Chloride 108 Carbon Dioxide 25 Anion Gap 6.0 BUN 9 Creatinine 0.8 Estimated GFR (MDRD) 75 L Glucose 86 Calcium 9.6 - Rads (name of study) 2-view abdomen Radiology: Prelim report reviewed, EMP read contemporaneously, See rad report ( No evidence of ileus or obstruction. Small amount of stool within the colon.) PD MEDICAL DECISION MAKING - ED course Complexity details: reviewed old records, reviewed results, re-evaluated patient , considered differential, d/w patient ED course: The patient's presentation is significant for left-sided abdominal discomfort 2 days status post colonoscopy. She had one episode of rectal bleeding, with no recurrent episodes. Her rectal exam reveals brown Hemoccult positive stool. CBC and chemistry panel are completely normal, with a hemoglobin of 14.4. Two- view abdominal x-rays reveal no evidence of free air. Treatment in the emergency department included administration of hydromorphone 1 mg IV, and ondansetron 4 mg IV. On reexamination the patient's abdomen is benign. She is being discharged with prescriptions for Vicodin, 15 tablets, and Phenergan. I discussed with her the results of the workup, symptomatic treatment and outpatient follow-up, as well as potentially worrisome signs or symptoms that should prompt reevaluation in the emergency department. Departure - Departure Disposition: 01 Home, Self Care Clinical Impression: Heme positive stool, S/P colonoscopy with polypectomy Abdominal pain Qualifiers: Abdominal location: left lower quadrant Qualified Code(s): R10.32 - Left lower quadrant pain Condition: Stable Instructions: ED Abdominal Pain Unkn Cause Follow-Up: TRAVIS MYERS MD [Provider Admit Priv/Credential] - Prescriptions: HYDROcod/ACETAM 5/325 [Vicodin 5/325] 1 - 2 ea PO Q6H PRN #15 tablet PRN Reason: Pain Promethazine [Phenergan] 25 - 50 mg PO Q6H PRN #10 tab PRN Reason: Nausea / Vomiting Comments: Drink plenty of fluids. You can use Vicodin as prescribed as needed for pain. He continues Phenergan as prescribed if needed for nausea. Follow-up with Dr. Myers as planned. Return to the emergency department if you develop increasing abdominal pain, persistent vomiting, increasing rectal bleeding, or otherwise worsening symptoms. Discharge Date/Time: 11/10/16 16:15
[2016-11-10 16:18] VITALS: BP 127/86
== END 2016-11-10 16:15 | disposition home or self-care (01) ==
LOC: ED 14:07
DX: K92.1 Melena (principal); Z98.890 Other specified postprocedural states; R10.32 Left lower quadrant pain; E78.00 Pure hypercholesterolemia, unspecified; G47.30 Sleep apnea, unspecified; K64.9 Unspecified hemorrhoids
CPT/HCPCS: 36415; 74020; 80048; 85025; 96374; 96375; 99283; 99284; J1170

== ENCOUNTER 2016-11-15 15:49 | Outpatient (CLI) | payer MEDICAID ==
--- NOTE | 2016-11-28 17:48 | Mammography Report ---
DIGITAL BILATERAL SCREENING MAMMOGRAM: 11/15/2016 CLINICAL HISTORY: Asymptomatic 51-year-old female, family history of breast cancer, prior reduction m ammoplasty. TECHNIQUE: Routine CC and MLO projections were obtained of the breasts. Bilateral exaggerated CC vie ws. COMPARISON: None available at this time. FINDINGS: Scattered fibroglandular tissue is present within the breasts. There are no dominant paris s, suspicious microcalcifications, or secondary signs of malignancy. Postreduction changes are noted. Coarse, dystrophic calcifications in the left breast are likely the sequela of prior surgery. ASSESSMENT: NO MAMMOGRAPHIC EVIDENCE OF MALIGNANCY. NOTE: AN ADDENDUM WITH UPDATED IMPRESSION AND RECOMMENDATIONS WILL BE ISSUED IF OUTSIDE COMPARISONS B ECOME AVAILABLE. RECOMMENDATION: Screening mammography is recommended annually. BIRADS category 1 - negative. STANDARD QUALIFYING STATEMENTS 1. This examination was reviewed with the aid of Computed-Aided Detection (CAD). 2. A negative or benign imaging report should not delay biopsy if clinically suspicious findings are present. Consider surgical consultation if warranted. More than 5% of cancers are not identified by i maging. 3. Dense breasts may obscure an underlying neoplasm. JOB #: [id number] EXT JOB #:[id number]
== END 2016-11-15 15:50 | disposition home or self-care (01) ==
LOC: DI.N 15:49
PROVIDERS: ATTEND Nurse Practitioner Gerontology
DX: Z13.9 Encounter for screening, unspecified (principal); Z80.3 Family history of malignant neoplasm of breast
CPT/HCPCS: 77067

== ENCOUNTER 2016-12-04 10:17 | Outpatient (CLI) | payer MEDICAID ==
[2016-12-04 10:39] LABS: BASOPHILS # (AUTO) 0.1 10^3/uL (0.0-0.1); BASOPHILS % (AUTO) 0.8 %; EOSINOPHILS # (AUTO) 0.2 10^3/uL (0.0-0.7); EOSINOPHILS % (AUTO) 3.2 %; HCT - HEMATOCRIT 42.6 % (37.0-47.0); HGB - HEMOGLOBIN 14.6 g/dL (12.0-16.0); LYMPHOCYTES # (AUTO) 2.2 10^3/uL (1.5-3.5); LYMPHOCYTES % (AUTO) 29.1 %; MEAN CORPUSCULAR HEMOGLOBIN 30.1 pg (27.0-31.0); MEAN CORPUSCULAR HGB CONC 34.2 g/dL (32.0-36.0); MEAN PLATELET VOLUME 7.8 fL (7.9-10.8); MONOCYTES # (AUTO) 0.4 10^3/uL (0.0-1.0); MONOCYTES % (AUTO) 5.5 %; NEUTROPHILS # (AUTO) 4.6 10^3/uL (1.5-6.6); NEUTROPHILS % (AUTO) 61.4 %; RED BLOOD COUNT 4.84 10^6/uL (4.20-5.40); RED CELL DISTRIBUTION WIDTH 13.2 % (12.0-15.0); UNCORRECTED WHITE BLOOD COUNT 7.5 x10^3/uL; WHITE BLOOD COUNT 7.5 x10^3/uL (4.8-10.8)
[2016-12-04 11:49] LABS: CALCIUM 9.7 mg/dL (8.5-10.3); POTASSIUM 4.2 mmol/L (3.5-5.0)
== END 2016-12-04 10:18 | disposition home or self-care (01) ==
LOC: LAB 10:17
PROVIDERS: ATTEND Surgery
DX: K57.92 Diverticulitis of intestine, part unspecified, without perforation or abscess without bleeding (principal)
CPT/HCPCS: 36415; 80048; 85025

== ENCOUNTER 2016-12-11 06:06 | Inpatient (IN) | payer MEDICAID ==
[2016-12-11] MEDS ORDERED: LACTATED RINGERS 1,000 ML IV ONE ×3 (07:19→12:01)
[2016-12-11 07:25] LABS: HCG UR QUAL NEGATIVE
[2016-12-11] MEDS ORDERED: metroNIDAZOLE 500 MG/100 ML 100 ML ONE (07:31)
[2016-12-11] MEDS ORDERED: ceFAZolin 2 GM/50 ML 50 ML IV ONE (07:33)
[2016-12-11] MEDS ORDERED: BUPIVACAINE 0.5%-EPI 1:200000 PF 30 ML VIAL SUBQ ONE (08:14)
[2016-12-11] MEDS ORDERED: DEXAMETHASONE 4 MG/ML VIAL IVP ONE (08:30)
[2016-12-11] MEDS ORDERED: LABETALOL 5 MG/1 ML 20 ML MDV IV ONE (08:30)
[2016-12-11] MEDS ORDERED: KETOROLAC 30 MG/ML VIAL IVP ONE (08:30)
[2016-12-11] MEDS ORDERED: ONDANSETRON 4 MG/2 ML VIAL IVP ONE (08:30)
[2016-12-11] MEDS ORDERED: HYDROmorphone 1 MG/ML SYRINGE IVP ONE (08:30)
[2016-12-11] MEDS ORDERED: LIDOCAINE-MPF 2% 5 ML VIAL IM ONE (08:30)
[2016-12-11] MEDS ORDERED: ROCURONIUM 50 MG/5 ML VIAL IVP ONE (08:30)
[2016-12-11] MEDS ORDERED: MIDAZOLAM 2 MG/2 ML VIAL IVP ONE (08:30)
[2016-12-11] MEDS ORDERED: NEOSTIGMINE 1 MG/1 ML 10 ML MDV IVP ONE (08:30)
[2016-12-11] MEDS ORDERED: PROPOFOL 200 MG/20 ML VIAL IVP ONE (08:30)
[2016-12-11] MEDS ORDERED: GLYCOPYRROLATE 1 MG/5 ML VIAL IVP ONE (08:30)
[2016-12-11] MEDS ORDERED: ACETAMINOPHEN 1,000 MG/100 ML VIAL IV ONE (08:30)
[2016-12-11] MEDS ORDERED: fentaNYL 100 MCG/2 ML VIAL IVP ONE (08:30)
[2016-12-11] MEDS ORDERED: KETAMINE 500 MG/10 ML VIAL IVP ONE (08:30)
[2016-12-11] MEDS ORDERED: diphenhydrAMINE INJ 50 MG/ML VIAL IVP PRN (11:11)
[2016-12-11] MEDS ORDERED: SODIUM CHLORIDE FLUSH 0.9% 10 ML SYRINGE IVP PRN (11:11)
[2016-12-11] MEDS ORDERED: ONDANSETRON 4 MG/2 ML VIAL IVP PRN (11:11)
[2016-12-11] MEDS: LABETALOL 20 MG/4 ML SYRINGE IVP ONE ×3 (12:09→12:41)
[2016-12-11] MEDS: HYDROmorphone 1 MG/ML SYRINGE ONE ×3 (12:23→12:53)
--- NOTE | 2016-12-11 12:29 | OPERATIVE REPORT ---
DATE OF SURGERY: 12/11/2016 00:00:00 SURGEON: Davina Myers MD. RADIO INTERFERENCE INVESTIGATOR: Eliseo Kunz MD. PREOPERATIVE DIAGNOSIS: Recurrent diverticulitis. POSTOPERATIVE DIAGNOSIS: Recurrent diverticulitis. INDICATION FOR PROCEDURE: This is a 51-year-old female who presented to my office with complaints of repeated episodes of close interval uncomplicated diverticulitis. She underwent colonoscopic evaluation prior to proceeding with surgery and her colon was notable only for small polyps and isolated sigmoid diverticulosis. FINDINGS: After obtaining informed consent from the patient, she was brought into the operating room and positioned on the operating table in the lithotomy position, taking note of pressure points. She was intubated by Anesthesia. A Bliss catheter was inserted. She was administered 2 grams of Ancef and 500 mg of Flagyl. She was prepped and draped in the usual sterile fashion and a time- out was taken according to protocol. An infraumbilical 1 cm incision was created and deepened down to the umbilical stalk. This was grasped and elevated , and the Veress needle inserted and the abdominal cavity insufflated. An incision was made in the right lower lateral abdomen and using a 5 mm Optiview trocar the abdominal cavity was entered. The Veress needle was removed and was exchanged for a 12 mm port. The 5 mm port was also exchanged for a 12 mm port. An additional 5 mm port was placed in the suprapubic midline. The patient was positioned in Trendelenburg with the left side elevated. There were some adhesions of the sigmoid to the lateral side wall, which appeared to be the area of recurrent disease. The colon was elevated and a medial to lateral dissection approach was utilized. The colon was elevated at the level of the pelvic brim. The hook cautery was utilized to score the peritoneum. The underlying vascular pedicle was isolated using a combination of the [place] dissector and the LigaSure device. The pedicle was completely and circumferentially freed from the surrounding mesentery. The ureter was identified during this process and was protected during dissection. The Endo- ANTELMO 60 mm vascular load was utilized to transect the vascular pedicle. Upon transection, the stump was inspected, and no bleeding was noted. An additional branching vessel was similarly dissected out from the surrounding tissue and was clipped with 2 clips placed proximally, 1 distally, and was divided. I then began dissecting the mesentery down towards the area of the proposed distal site of transection. Again, the ureter was identified and protected during this process. I then turned my attention superiorly. The patient was then positioned in reverse Trendelenburg, and the mesentery was divided up towards the proposed line of proximal transection, which was noted to be the mid descending colon. The colon was then retracted medially and the lateral traction attachments were divided. I continued dividing the lateral attachments all the way up to the level of the spleen. There were some abnormal attachments of the colon to the spleen at this location. These were divided using the LigaSure. In order to have enough mobility of the mid descending colon, the splenic flexure was fully mobilized. This was done with a combination of blunt dissection and the LigaSure device. Again, the colon was very adherent to the spleen in this location and care was taken to carefully dissect the colonic adhesions from the spleen. At this point, I again turned my attention down to the level of the pelvis to ensure adequate mobilization of the colon had occurred. There was a persistent area of attachment of the colon to the lateral side wall at the level of the diverticular disease. This was carefully taken down with a combination of blunt dissection and the LigaSure. Again, the ureter was identified and was protected. At this point, the distal transection point was selected and the entire mesentery surrounding the colon at this location was divided using the LigaSure. The 60 mm Endo-ANTELMO with a blue load was then inserted and the colon was transected at this location. This was noted to be at the level of the convergence of the tinea. A reload was required to completely transect the colon. Very minimal bleeding was noted from the colonic stump. The proximal colon stump was then grasped and the patient was flattened and the umbilical port site incision was extended to approximately 3 cm. The fascia was also extended. A wound protecting device was then inserted and the proximal colon was brought out through the umbilical wound. The mesentery at the area of the proximal transection point was completely cleared from the colon using electrocautery. At this point, the pursestring device was placed on the colon and a 3-0 Prolene pursestring was created. The colon was then transected with a 10 blade and passed off. The pursestring device was opened and the 28 mm EEA anvil was inserted. The suture was then tied down and the stump was placed back into the abdominal cavity. The wound protecting device was twisted upon itself to allow for reinsufflation of the abdominal cavity. The patient was then positioned again in Trendelenburg and the family services assistant, after dilating the rectum, inserted the EEA stapler through the rectal stump. The stapling device was opened and the anvil was connected to the spike after ensuring there were no twists of the underlying mesentery. The device was then closed and fired. Upon removal of the stapling device, both donuts were inspected and were noted to be complete. An air test was then performed by flattening the patient and inserting saline into the pelvic cavity and inserting air through the rectum. No bubbles were seen. All irrigation fluid was suctioned out of the abdominal cavity and was noted to be clear. The right 12 mm port was then closed using a Tomas-Ritika device and a 0 Vicryl suture in a diumjx-wo-aclod fashion. All ports were then removed and the abdominal cavity was completely desufflated. The umbilical incision was then closed with a running 0 looped PDS. Subcutaneous tissue was irrigated. The skin incisions were then closed with 4-0 Monocryl and Dermabond was applied; 60 mL of local anesthetic was injected into the wounds prior to closure. The patient was then extubated and taken to recovery in stable condition. ESTIMATED BLOOD LOSS: 20 mL. URINE OUTPUT: 100 mL. CRYSTALLOID: 700 mL. COMPLICATIONS: None. SPECIMEN: Sigmoid colon. PROCEDURE: Laparoscopic assisted sigmoidectomy and mobilization of the splenic flexure. JOB #: [id number] EXT JOB #:[id number] NIRAV
[2016-12-11] MEDS: SODIUM CHLORIDE FLUSH 0.9% 10 ML SYRINGE IVP SCH ×2 (13:52→20:48)
[2016-12-11] MEDS: ACETAMINOPHEN 1,000 MG/100 ML 100 ML IV SCH ×3 (14:07→23:53)
[2016-12-11] MEDS: LACTATED RINGERS 1,000 ML IV SCH ×2 (14:07→19:50)
[2016-12-11] MEDS: MORPHINE PCA 50 MG IV PRN (17:34)
[2016-12-11] MEDS: NON FORMULARY MED (Cyclosporine [Restasis] 1 DROPS) EACHEYE SCH (20:48)
[2016-12-11] MEDS: CARBOXYMETHYLCELLULOSE OPHTH DROPS EACHEYE PRN (21:54)
[2016-12-12] MEDS: ACETAMINOPHEN 1,000 MG/100 ML 100 ML IV SCH ×4 (05:50→23:42)
[2016-12-12] MEDS: SODIUM CHLORIDE FLUSH 0.9% 10 ML SYRINGE IVP SCH ×3 (05:51→20:03)
[2016-12-12] MEDS: buPROPion SR 100 MG TABLET PO SCH (08:21)
[2016-12-12] MEDS: SENNA 8.6 MG TABLET PO SCH (08:21)
[2016-12-12] MEDS: NON FORMULARY MED (Cyclosporine [Restasis] 1 DROPS) EACHEYE SCH ×2 (08:22→20:03)
[2016-12-12] MEDS: LACTATED RINGERS 1,000 ML IV SCH ×2 (09:22→22:41)
--- NOTE | 2016-12-12 11:16 | PROVIDER PROGRESS NOTE ---
Subjective - General Admit Date: 12/11/16 Procedure Date: 12/11/16 Post Op Days: 1 Procedure Performed: laparoscopic sigmoidectomy - Review of Systems Wound/Incisions: positive: Healing well, Drainage General: positive: No symptoms Pulmonary: positive: No symptoms Cardiovascular: positive: No symptoms Gastrointestinal: positive: Abdominal pain Musculoskeletal: positive: No symptoms Psychiatric: positive: No symptoms Objective - Patient Data Reviewed Vital Signs: Yes Vital Signs: Vital Signs x48h Temp Pulse Resp BP Pulse Ox 12/12/16 10:00 14 12/12/16 08:19 37.1 C 58 L 16 99/67 97 12/12/16 08:00 16 12/12/16 05:53 16 12/12/16 05:13 36.2 C L 62 16 98/60 100 12/12/16 04:00 16 Intake & Output: Intake and Output Totals x24h 12/10/16 12/11/16 12/12/16 23:59 23:59 23:59 Intake Total 3625 938 Output Total 825 1650 Balance 2800 -712 - Lab Results Other Lab Results: Lab Results x24hrs 12/11/16 Range/Units 11:20 POC Whole Bld Glucose 150 H (70 - 100) mg/dL - Current Medications Current Medications: Current Medications Generic Name Dose Route Start Last Admin Trade Name Freq PRN Reason Stop Dose Admin Bupropion HCl 100 mg 12/12/16 09:00 12/12/16 08:21 Wellbutrin Sr PO 100 mg DAILY THERESA Administration Carboxymethylcellulose 1 drops 12/11/16 20:49 12/11/16 21:54 Refresh 1% Ophth Drops EACHEYE 1 drops PRN PRN Administration Dry Eye Lactated Ringer's 1,000 mls @ 75 mls/hr 12/11/16 12:00 12/12/16 09:22 Lr IV 75 mls/hr .[id number] THERESA Administration Acetaminophen 100 mls @ 400 mls/hr 12/11/16 12:00 12/12/16 05:50 Ofirmev IV 400 mls/hr Q6H THERESA Administration Morphine Sulfate/Sodium Chloride 0 mg 12/11/16 11:11 12/11/16 17:34 Morphine General Warehouse Associate (Use General Warehouse Associate Order Set) IV 50 mg SLACKLINE OPERATOR PRN Administration PAIN Protocol Non-Formulary Medication 1 drops 12/11/16 21:00 12/12/16 08:22 Cyclosporine [Restasis] EACHEYE Not Given BID THERESA Ondansetron HCl 4 mg 12/11/16 11:11 12/11/16 22:00 Zofran Inj IVP 4 mg Q6H PRN Administration Nausea / Vomiting Senna 8.6 mg 12/12/16 09:00 12/12/16 08:21 Senokot PO 8.6 mg DAILY THERESA Administration Sodium Chloride 10 ml 12/11/16 14:00 12/12/16 05:51 Normal Saline Flush 0.9% IVP Not Given Q8HR THERESA - Physical Exam Wound/Incisions: positive: Drainage, Other (minimal serosanguinous drainage from midline incision) General Appearance: positive: No acute distress Respiratory: positive: No respiratory distress Cardiovascular: positive: Regular rate & rhythm Abdomen: positive: Other (soft, non-distended, non-tender to light palpation) Extremities: positive: No pedal edema Neurologic/Psychiatric: positive: Oriented x3 Impression/Plan - Problem List Problem List: s/p lap sigmoidectomy POD 1 - encourage patient to ambulate. She has only been up to bathroom and states that she had a lot of pain with ambulation. I encouraged her to ambulated after receiving the dose of IV tylenol. SLACKLINE OPERATOR will continue - spencer DCed. Trial of void - Will place bacitracin on wound and change dressing daily. - continue clear liquids until patient has some bowel function. No flatus yet and occasional nausea - home meds with the exception of statin have been resumed. Will resume statin once patient is on a regular diet - start Lovenox DVT propylyaxis today
[2016-12-12] MEDS: ENOXAPARIN 40 MG/0.4 ML SYRINGE SUBQ SCH (11:47)
[2016-12-12] MEDS ORDERED: BACITRACIN OINT TOP PRN (15:13)
[2016-12-12] MEDS: MORPHINE PCA 50 MG IV PRN (17:45)
[2016-12-12] MEDS: CARBOXYMETHYLCELLULOSE OPHTH DROPS EACHEYE PRN (20:02)
[2016-12-13] MEDS: SODIUM CHLORIDE FLUSH 0.9% 10 ML SYRINGE IVP SCH ×3 (05:17→22:04)
[2016-12-13] MEDS: ACETAMINOPHEN 1,000 MG/100 ML 100 ML IV SCH ×3 (05:28→19:44)
[2016-12-13] MEDS: SENNA 8.6 MG TABLET PO SCH (08:54)
[2016-12-13] MEDS: buPROPion SR 100 MG TABLET PO SCH (08:54)
[2016-12-13] MEDS: ENOXAPARIN 40 MG/0.4 ML SYRINGE SUBQ SCH (08:55)
[2016-12-13] MEDS: CARBOXYMETHYLCELLULOSE OPHTH DROPS EACHEYE PRN ×2 (08:55→21:59)
[2016-12-13] MEDS: NON FORMULARY MED (Cyclosporine [Restasis] 1 DROPS) EACHEYE SCH ×2 (08:59→22:04)
--- NOTE | 2016-12-13 09:42 | PROVIDER PROGRESS NOTE ---
Subjective - General Admit Date: 12/11/16 Procedure Date: 12/11/16 Post Op Days: 2 Procedure Performed: laparoscopic sigmoidectomy - Review of Systems Wound/Incisions: positive: Dressing dry and intact General: positive: Other (difficulty sleeping last night) Pulmonary: positive: No symptoms Cardiovascular: positive: No symptoms Gastrointestinal: positive: Abdominal pain Musculoskeletal: positive: No symptoms Psychiatric: positive: No symptoms Objective - Patient Data Reviewed Vital Signs: Yes Vital Signs: Vital Signs x48h Temp Pulse Resp BP Pulse Ox 12/13/16 07:56 36.5 C 77 19 106/66 98 12/13/16 05:22 16 12/13/16 05:00 36.4 C L 60 16 128/79 99 Intake & Output: Intake and Output Totals x24h 12/11/16 12/12/16 12/13/16 23:59 23:59 23:59 Intake Total 3625 3176 783 Output Total 825 2650 400 Balance 2800 526 383 - Lab Results Other Lab Results: Lab Results x24hrs 12/11/16 12/11/16 Range/Units 20:16 16:19 POC Whole Bld Glucose 125 H 127 H (70 - 100) mg/dL - Current Medications Current Medications: Current Medications Generic Name Dose Route Start Last Admin Trade Name Freq PRN Reason Stop Dose Admin Bacitracin 1 packet 12/12/16 15:13 12/12/16 18:23 Bacitracin TOP 2 packet PRN PRN Administration Skin Care Bupropion HCl 100 mg 12/12/16 09:00 12/13/16 08:54 Wellbutrin Sr PO 100 mg DAILY THERESA Administration Carboxymethylcellulose 1 drops 12/11/16 20:49 12/13/16 08:55 Refresh 1% Ophth Drops EACHEYE 1 drops PRN PRN Administration Dry Eye Enoxaparin Sodium 40 mg 12/12/16 12:00 12/13/16 08:55 Lovenox SUBQ 40 mg DAILY THERESA Administration Lactated Ringer's 1,000 mls @ 75 mls/hr 12/11/16 12:00 12/12/16 22:41 Lr IV 75 mls/hr .[id number] THERESA Administration Acetaminophen 100 mls @ 400 mls/hr 12/11/16 12:00 12/13/16 05:28 Ofirmev IV 400 mls/hr Q6H THERESA Administration Morphine Sulfate/Sodium Chloride 0 mg 12/11/16 11:11 12/12/16 17:45 Morphine Business Office Assistant (Use Business Office Assistant Order Set) IV 50 mg TRANSPORT RN PRN Administration PAIN Protocol Non-Formulary Medication 1 drops 12/11/16 21:00 12/13/16 08:59 Cyclosporine [Restasis] EACHEYE 1 drops BID THERESA Administration Ondansetron HCl 4 mg 12/11/16 11:11 12/11/16 22:00 Zofran Inj IVP 4 mg Q6H PRN Administration Nausea / Vomiting Senna 8.6 mg 12/12/16 09:00 12/13/16 08:54 Senokot PO 8.6 mg DAILY THERESA Administration Sodium Chloride 10 ml 12/11/16 14:00 12/13/16 05:17 Normal Saline Flush 0.9% IVP Not Given Q8HR THERESA - Physical Exam Wound/Incisions: positive: Dressing dry and intact, No drainage. negative: Erythema General Appearance: positive: No acute distress Respiratory: positive: No respiratory distress Cardiovascular: positive: Regular rate & rhythm Abdomen: positive: No distention Extremities: positive: No pedal edema Neurologic/Psychiatric: positive: Oriented x3 Impression/Plan - Problem List Problem List: s/p lap sigmoidectomy POD 2 - Patient is slow to ambulate. I have again stressed the importance of mobilization - No flatus. Con't clear liquids until bowel function present - Lovenox started for DVT prophylaxis - Will continue TRANSPORT RN until soft diet started then will transition to oral pain meds
[2016-12-13] MEDS: LACTATED RINGERS 1,000 ML IV SCH (11:46)
[2016-12-13] MEDS: MORPHINE PCA 50 MG IV PRN (16:30)
[2016-12-14] MEDS: ACETAMINOPHEN 1,000 MG/100 ML 100 ML IV SCH ×3 (00:31→12:32)
[2016-12-14] MEDS: LACTATED RINGERS 1,000 ML IV SCH ×2 (01:12→15:01)
[2016-12-14] MEDS: SODIUM CHLORIDE FLUSH 0.9% 10 ML SYRINGE IVP SCH ×3 (06:24→19:03)
[2016-12-14] MEDS: buPROPion SR 100 MG TABLET PO SCH (08:22)
[2016-12-14] MEDS: NON FORMULARY MED (Cyclosporine [Restasis] 1 DROPS) EACHEYE SCH ×2 (08:24→19:03)
[2016-12-14] MEDS: CARBOXYMETHYLCELLULOSE OPHTH DROPS EACHEYE PRN ×2 (08:25→23:35)
[2016-12-14] MEDS: ENOXAPARIN 40 MG/0.4 ML SYRINGE SUBQ SCH (08:26)
[2016-12-14] MEDS: oxyCOD/ACETAMIN 5 MG/325 MG TABLET PO PRN ×4 (09:35→23:36)
--- NOTE | 2016-12-14 10:30 | PROVIDER PROGRESS NOTE ---
Subjective - General Admit Date: 12/11/16 Procedure Date: 12/11/16 Post Op Days: 3 Procedure Performed: laparoscopic sigmoidectomy - Review of Systems Wound/Incisions: positive: Dressing dry and intact, No drainage. negative: Erythema General: positive: Other (still without bowel function) Pulmonary: positive: No symptoms Cardiovascular: positive: No symptoms Gastrointestinal: positive: Abdominal pain (improved). negative: Nausea, Vomiting, Flatus Musculoskeletal: positive: No symptoms Psychiatric: positive: No symptoms Objective - Patient Data Reviewed Vital Signs: Yes Vital Signs: Vital Signs x48h Temp Pulse Resp BP Pulse Ox 12/14/16 08:00 36.8 C 65 18 156/97 H 95 12/14/16 06:00 16 12/14/16 02:38 16 Intake & Output: Intake and Output Totals x24h 12/12/16 12/13/16 12/14/16 23:59 23:59 23:59 Intake Total 3176 2133 1111 Output Total 2650 1750 1900 Balance 526 383 -789 - Lab Results Other Lab Results: Lab Results x24hrs 12/12/16 Range/Units 07:54 POC Whole Bld Glucose 120 H (70 - 100) mg/dL - Current Medications Current Medications: Current Medications Generic Name Dose Route Start Last Admin Trade Name Freq PRN Reason Stop Dose Admin Bacitracin 1 packet 12/12/16 15:13 12/12/16 18:23 Bacitracin TOP 2 packet PRN PRN Administration Skin Care Bupropion HCl 100 mg 12/12/16 09:00 12/14/16 08:22 Wellbutrin Sr PO 100 mg DAILY THERESA Administration Carboxymethylcellulose 1 drops 12/11/16 20:49 12/14/16 08:25 Refresh 1% Ophth Drops EACHEYE 1 drops PRN PRN Administration Dry Eye Enoxaparin Sodium 40 mg 12/12/16 12:00 12/14/16 08:26 Lovenox SUBQ 40 mg DAILY THERESA Administration Lactated Ringer's 1,000 mls @ 75 mls/hr 12/11/16 12:00 12/14/16 01:12 Lr IV 75 mls/hr .[id number] THERESA Administration Acetaminophen 100 mls @ 400 mls/hr 12/11/16 12:00 12/14/16 06:25 Ofirmev IV 400 mls/hr Q6H THERESA Administration Non-Formulary Medication 1 drops 12/11/16 21:00 12/14/16 08:24 Cyclosporine [Restasis] EACHEYE 1 drops BID THERESA Administration Ondansetron HCl 4 mg 12/11/16 11:11 12/11/16 22:00 Zofran Inj IVP 4 mg Q6H PRN Administration Nausea / Vomiting Oxycodone/Acetaminophen 1 tab 12/14/16 08:10 12/14/16 09:35 Percocet 5 Mg/325 Mg PO 1 tab Q4HR PRN Administration PAIN Senna 8.6 mg 12/12/16 09:00 12/13/16 08:54 Senokot PO 8.6 mg DAILY THERESA Administration Sodium Chloride 10 ml 12/11/16 14:00 12/14/16 06:24 Normal Saline Flush 0.9% IVP Not Given Q8HR THERESA - Physical Exam Wound/Incisions: positive: Healing well, Dressing dry and intact, No drainage General Appearance: positive: No acute distress Respiratory: positive: No respiratory distress Cardiovascular: positive: Regular rate & rhythm Abdomen: positive: No distention, Other (+ bowel tones. Non-tender to light palpation) Extremities: positive: No pedal edema Neurologic/Psychiatric: positive: Oriented x3 Impression/Plan - Problem List Problem List: s/p lap sigmoidectomy - Patient ambulated 3 times yesterday. I have emphasized the importance of staying out of bed as much as possible to promote bowel motility. - DC CONCRETE BLOCK LAYER and start oral pain meds - continue clear liquids until bowel function
[2016-12-14] MEDS: SENNA 8.6 MG TABLET PO SCH (10:46)
--- NOTE | 2016-12-14 14:23 | Discharge Plan ---
Discharge Plan Disposition: Home, Self Care Condition: Good Prescriptions: oxyCODONE/ACET 5/325 [Percocet 5 mg/325 mg] 1 tab PO Q4HR PRN #30 tablet PRN Reason: Pain Senna [Senokot] 8.6 mg PO DAILY #30 tablet Diet: Soft Activity Restrictions: Additional Comments (nothing strenuous for 1 week) Shower Restrictions: No Driving Restrictions: Yes (not while on narcotics) Weight Bearing: Full Weight Instruction Topics: Colorectal Surg Recovery No Smoking: If you smoke, Please STOP! Call for help. Follow-up with: Daron Jones PA-C [Primary Care Provider] - TRAVIS FRANKS MD [Provider Admit Priv/Credential] - 2 Weeks
[2016-12-15] MEDS: SODIUM CHLORIDE FLUSH 0.9% 10 ML SYRINGE IVP SCH (06:14)
[2016-12-15] MEDS: LACTATED RINGERS 1,000 ML IV SCH (08:26)
[2016-12-15] MEDS: ENOXAPARIN 40 MG/0.4 ML SYRINGE SUBQ SCH (09:01)
[2016-12-15] MEDS: oxyCOD/ACETAMIN 5 MG/325 MG TABLET PO PRN ×2 (09:02→12:26)
[2016-12-15] MEDS: buPROPion SR 100 MG TABLET PO SCH (09:02)
[2016-12-15] MEDS: SENNA 8.6 MG TABLET PO SCH (09:02)
[2016-12-15] MEDS: CARBOXYMETHYLCELLULOSE OPHTH DROPS EACHEYE PRN (09:05)
[2016-12-15] MEDS: NON FORMULARY MED (Cyclosporine [Restasis] 1 DROPS) EACHEYE SCH (09:06)
--- NOTE | 2016-12-15 11:25 | PROVIDER PROGRESS NOTE ---
Subjective - General Admit Date: 12/11/16 Procedure Date: 12/11/16 Post Op Days: 4 Procedure Performed: laparoscopic sigmoidectomy - Review of Systems Wound/Incisions: positive: Healing well, No drainage General: positive: Other (still without bowel function) Pulmonary: positive: No symptoms Cardiovascular: positive: No symptoms Gastrointestinal: positive: Constipation, Diarrhea, Other (small bowel movement yesterday. + flatus no nausea or vomiting). negative: Nausea, Vomiting, Flatus Musculoskeletal: positive: No symptoms Psychiatric: positive: No symptoms Objective - Patient Data Vital Signs: Vital Signs x48h Temp Pulse Resp BP Pulse Ox 12/15/16 08:48 36.9 C 75 16 136/100 H 98 12/15/16 05:32 36.5 C 71 16 135/95 H 96 Intake & Output: Intake and Output Totals x24h 12/13/16 12/14/16 12/15/16 23:59 23:59 23:59 Intake Total 2133 2761 620 Output Total 1750 5100 300 Balance 383 -2339 320 - Current Medications Current Medications: Current Medications Generic Name Dose Route Start Last Admin Trade Name Freq PRN Reason Stop Dose Admin Bacitracin 1 packet 12/12/16 15:13 12/12/16 18:23 Bacitracin TOP 2 packet PRN PRN Administration Skin Care Bupropion HCl 100 mg 12/12/16 09:00 12/15/16 09:02 Wellbutrin Sr PO 100 mg DAILY THERESA Administration Carboxymethylcellulose 1 drops 12/11/16 20:49 12/15/16 09:05 Refresh 1% Ophth Drops EACHEYE 2 drops PRN PRN Administration Dry Eye Enoxaparin Sodium 40 mg 12/12/16 12:00 12/15/16 09:01 Lovenox SUBQ 40 mg DAILY THERESA Administration Lactated Ringer's 1,000 mls @ 75 mls/hr 12/11/16 12:00 12/15/16 08:26 Lr IV Not Given .[id number] THERESA Non-Formulary Medication 1 drops 12/11/16 21:00 12/15/16 09:06 Cyclosporine [Restasis] EACHEYE Not Given BID THERESA Ondansetron HCl 4 mg 12/11/16 11:11 12/11/16 22:00 Zofran Inj IVP 4 mg Q6H PRN Administration Nausea / Vomiting Oxycodone/Acetaminophen 1 tab 12/14/16 08:10 12/15/16 09:02 Percocet 5 Mg/325 Mg PO 0.5 tab Q4HR PRN Administration PAIN Senna 8.6 mg 12/12/16 09:00 12/15/16 09:02 Senokot PO 8.6 mg DAILY THERESA Administration Sodium Chloride 10 ml 12/11/16 14:00 12/15/16 06:14 Normal Saline Flush 0.9% IVP 10 ml Q8HR THERESA Administration - Physical Exam Wound/Incisions: positive: Healing well, No drainage Abdomen: positive: Non-tender Impression/Plan - Problem List Problem List: Recurrent diverticulitis s/p laparoscopic sigmoid colon resection POD#4. No evidence of infection. Tolerating diet. Bowel function returned. DC home.
[2016-12-15 11:30] VITALS: BP 136/97
== END 2016-12-15 13:00 | disposition home or self-care (01) | DRG 983 ==
LOC: MS2 06:06
PROVIDERS: ADMIT Surgery; ATTEND Surgery
PROC: 0DBN4ZZ Excision of Sigmoid Colon, Percutaneous Endoscopic Approach (ICD-10-PCS; principal; 2016-12-11 07:30)
DX: E78.5 Hyperlipidemia, unspecified (principal); F32.9 Major depressive disorder, single episode, unspecified; L20.9 Atopic dermatitis, unspecified; G47.33 Obstructive sleep apnea (adult) (pediatric); Z79.899 Other long term (current) drug therapy; Z87.19 Personal history of other diseases of the digestive system
CPT/HCPCS: 81025; 86850; 86900; 86901; 88307

== ENCOUNTER 2017-05-14 10:05 | Outpatient (CLI) | payer MEDICAID ==
--- NOTE | 2017-05-14 19:57 | XRAY Report ---
DATE OF SERVICE: 05/14/2017 FOUR VIEW LEFT KNEE: 05/14/2017 CLINICAL INDICATION: Arthritis. AP, lateral, bilateral oblique views of the left knee demonstrate no evidence of acute fracture or dislocation. The joint spaces are preserved. No effusion is present. IMPRESSION: Normal left knee. TD: 05/14/2017 20:56
== END 2017-05-14 10:06 | disposition home or self-care (01) ==
LOC: DI 10:05
PROVIDERS: ATTEND Nurse Practitioner Gerontology
DX: M17.0 Bilateral primary osteoarthritis of knee (principal); M25.562 Pain in left knee

== ENCOUNTER 2017-08-13 20:52 | Outpatient (CLI) | payer MEDICAID ==
--- NOTE | 2017-08-14 09:52 | Ultrasound Report ---
COMPLETE ABDOMINAL ULTRASOUND: 08/13/2017 CLINICAL INDICATION: Pain. TECHNIQUE: Real-time scanning was performed with school admissions representative static images obtained. FINDINGS: The liver measures 16.2 cm. Hepatic echogenicity is normal. No intrahepatic biliary dilatation or focal parenchymal lesion is present. The common bile duct measures 4 mm. The gallbladder demonstrates a 2 mm polyp or focus of adherent tumefactive sludge along the posterior wall. No cholelithiasis or wall thickening is present. The pancreas is unremarkable. The kidneys are normal, with the right measuring 11.3 cm and the left measuring 11.0 cm. The spleen measures 10.3 cm, and demonstrates normal echotexture. The abdominal aorta is normal in caliber. The inferior vena cava is unremarkable. No free fluid is present. IMPRESSION: TINY POLYP OR FOCUS OF ADHERENT TUMEFACTIVE SLUDGE IN THE GALLBLADDER. NO EVIDENCE OF CHOLELITHIASIS OR BILIARY OBSTRUCTION. TD: 08/14/2017 09:51
== END 2017-08-13 20:53 | disposition home or self-care (01) ==
LOC: DI 20:52
PROVIDERS: ATTEND Nurse Practitioner Gerontology
DX: R10.9 Unspecified abdominal pain (principal)
CPT/HCPCS: 76700

== ENCOUNTER 2017-12-04 08:59 | Outpatient (CLI) | payer MEDICAID ==
[2017-12-04 12:26] LABS: BASOPHILS % (AUTO) 0.5 %; EOSINOPHILS # (AUTO) 0.3 10^3/uL (0.0-0.7); EOSINOPHILS % (AUTO) 3.4 %; HGB - HEMOGLOBIN 14.4 g/dL (12.0-16.0); LYMPHOCYTES # (AUTO) 1.8 10^3/uL (1.5-3.5); LYMPHOCYTES % (AUTO) 20.4 %; MEAN CORPUSCULAR HEMOGLOBIN 30.7 pg (27.0-31.0); MEAN CORPUSCULAR HGB CONC 34.1 g/dL (32.0-36.0); MEAN CORPUSCULAR VOLUME 89.9 fL (81.0-99.0); MONOCYTES # (AUTO) 0.6 10^3/uL (0.0-1.0); MONOCYTES % (AUTO) 7.2 %; NEUTROPHILS # (AUTO) 6.1 10^3/uL (1.5-6.6); NEUTROPHILS % (AUTO) 68.5 %; PLT - PLATELET COUNT 240 10^3/uL (130-450); RED BLOOD COUNT 4.68 10^6/uL (4.20-5.40); RED CELL DISTRIBUTION WIDTH 13.2 % (12.0-15.0); WHITE BLOOD COUNT 8.9 x10^3/uL (4.8-10.8)
[2017-12-04 13:33] LABS: ALBUMIN 4.4 g/dL (3.2-5.5); ALBUMIN/GLOBULIN RATIO 1.4 (1.0-2.2); ALKALINE PHOSPHATASE 93 IU/L (42-121); ALT ALANINE AMINOTRANSFERASE 23 IU/L (10-60); AST ASPARTATE AMINOTRANSFERASE 19 IU/L (10-42); BILIRUBIN,TOTAL 0.8 mg/dL (0.2-1.0); BUN - BLOOD UREA NITROGEN 19 mg/dL (6-20); CALCIUM 9.2 mg/dL (8.5-10.3); CARBON DIOXIDE - CO2 23 mmol/L (21-32); CHLORIDE 105 mmol/L (101-111); CHOL/HDL RATIO 6.4 (<4.4); CHOLESTEROL 295 mg/dL; CREATININE 0.8 mg/dL (0.4-1.0); GFR - MDRD 75 (>89); GLUCOSE 110 mg/dL (70-100); HDL CHOLESTEROL 46 mg/dL; LDL CHOLESTEROL,CALCULATED 188 mg/dL; LDL/HDL RATIO 4.1 (<4.4); SODIUM 135 mmol/L (135-145); TOTAL PROTEIN 7.6 g/dL (6.7-8.2); VLDL CHOLESTEROL 61 mg/dL
== END 2017-12-04 09:00 | disposition home or self-care (01) ==
LOC: LAB.N 08:59
PROVIDERS: ATTEND Nurse Practitioner Gerontology
DX: I10 Essential (primary) hypertension (principal); R10.9 Unspecified abdominal pain
CPT/HCPCS: 36415; 80053; 80061; 83721; 85025

== ENCOUNTER → 2017-12-10 | Outpatient (CLI) | payer MEDICAID | LOC: RT.N 10:00 | PROVIDERS: ATTEND Nurse Practitioner Gerontology | DX: R07.89 Other chest pain (principal) | CPT/HCPCS: 93005 ==

== ENCOUNTER 2018-02-05 15:11 | Outpatient (CLI) | payer MEDICAID | END 2018-02-05 15:12 | disposition home or self-care (01) | LOC: SC 15:11 | PROVIDERS: ATTEND Nurse Practitioner Family | DX: G47.33 Obstructive sleep apnea (adult) (pediatric) (principal) | CPT/HCPCS: 99212; 99214 ==

== ENCOUNTER 2019-01-25 15:20 | Emergency (ER) | payer MEDICAID ==
[2019-01-25 15:38] VITALS: BP 138/99
--- NOTE | 2019-01-25 15:46 | ED Physician Documentation ---
<America Mims - Last Filed: 01/25/19 15:46> PD HPI ABD PAIN - Stated complaint Stated Complaint: L SIDE AB PX - Chief complaint Chief Complaint: Abd Pain PD PAST MEDICAL HISTORY - Past Medical History Cardiovascular: High cholesterol Respiratory: Sleep apnea, CPAP use, Other Endocrine/Autoimmune: None GI: Hemorrhoids, Diverticulitis NETWORK MANAGEMENT SPECIALIST: None, Ovarian cysts : None HEENT: None Psych: Depression Musculoskeletal: None Derm: None - Past Surgical History Past Surgical History: Yes General: Colonoscopy /NETWORK MANAGEMENT SPECIALIST: section, Breast reduction - Present Medications Home Medications: Ambulatory Orders Medication Instructions Recorded Confirmed Rosuvastatin Calcium [Crestor] 20 mg PO DAILY 11/08/16 12/11/16 Cyclosporine [Restasis] 1 drops EACHEYE BID 12/14/16 Senna [Senokot] 8.6 mg PO DAILY #30 tablet 12/14/16 buPROPion [Wellbutrin Sr] 100 mg PO DAILY tablet 12/14/16 oxyCODONE/ACET 5/325 [Percocet 5 1 tab PO Q4HR PRN #30 tablet 12/14/16 mg/325 mg] Ciprofloxacin HCl [Cipro] 500 mg PO BID #14 tablet 01/25/19 Hydrocodone/Acetaminophen 1 - 2 each PO Q6H PRN #10 tablet 01/25/19 [Hydrocodon-Acetaminophen 5-325] Metronidazole [Flagyl] 500 mg PO TID #21 tablet 01/25/19 - Allergies Allergies/Adverse Reactions: Allergies Allergy/AdvReac Type Severity Reaction Status Date / Time tramadol HCl * [From Ultram] AdvReac Hallucinati Verified 01/25/19 15:33 ons - Social History Does the pt smoke?: No Smoking Status: Never smoker Does the pt drink ETOH?: Yes Does the pt have substance abuse?: No - Immunizations Immunizations are current?: Yes - POLST Patient has POLST: No POLST Status: Full Code Departure - Departure Disposition: 01 Home, Self Care Clinical Impression: Diverticulitis of gastrointestinal tract, Sebaceous cyst Condition: Good Instructions: ED Diverticulitis, ED Cyst Sebaceous Prescriptions: Ciprofloxacin HCl [Cipro] 500 mg PO BID #14 tablet Hydrocodone/Acetaminophen [Hydrocodon-Acetaminophen 5-325] 1 - 2 each PO Q6H PRN #10 tablet PRN Reason: pain Metronidazole [Flagyl] 500 mg PO TID #21 tablet Comments: Return for new or worsening symptoms, follow-up with your doctor within the week regardless. Your blood pressure was elevated today on check into the emergency department. This does not mean that you have hypertension, it is a common phenomenon to come to the emergency department and have elevated blood pressure. I recommend that you see your primary care physician within the week to have it rechecked when you are feeling better. Do not drink or drive while taking narcotic pain medication. Note that many narcotic pain relievers also contain Tylenol/acetaminophen. Please ensure that your total dose of acetaminophen from all sources does not exceed 3 g (3000 mg) per day. You may get constipated while on this medication. Take a stool softener such as Colace twice a day while you are on it. Also add an [id number]-hyvdyfz laxative such as senna or MiraLAX on any day that you do not have a bowel movement. If you received a narcotic pain medication or sedative while in the emergency department, do not drive for the next 24 hours. <Cortes Mcdermott - Last Filed: 01/25/19 16:05> PD HPI ABD PAIN - History obtained from History obtained from: Patient (53yo woman with recurrent diverticulitis. Had a partial sigmoidectomy about a year and a half ago but has had recurrent diverticulitis since then. She developed popping left sided abdominal pain today consistent with prior episodes of diverticulitis. No changes in bowel movements. No fevers. No nausea. She also has an ancillary complaint of a 4- day history of a very mildly painful mass in the left axilla.) Review of Systems Constitutional: denies: Fever, Chills Cardiac: denies: Chest pain / pressure, Palpitations Respiratory: denies: Dyspnea, Cough PD ED PE NORMAL - Vitals Vital signs reviewed: Yes - General General: Alert and oriented X 3, No acute distress - Abdomen Abdomen: Soft, Non tender - Derm Derm: Other (There is a small pointed sebaceous cyst in the left axilla without evidence of infection) - Neuro Neuro: Alert and oriented X 3, Normal speech Results - Vitals Vitals: Vital Signs - 24 hr 01/25/19 15:33 Temperature 36.5 C Heart Rate 74 Respiratory 16 Rate Blood Pressure 138/99 H O2 Saturation 98 Oxygen O2 Source Room air Procedures - Abscess I&D (location) sebaceous, L axilla Preparation: Alcohol Incision: Needle aspiration, Purulent drainage Other: Pt tolerated well PD MEDICAL DECISION MAKING - ED course ED course: 53-year-old woman with probably very early/mild diverticulitis at this juncture and is treated with Cipro and Flagyl. Also had a small pointed sebaceous cyst in the left axilla which was drained with a needle. Departure - Departure Record reviewed to determine appropriate education?: Yes
== END 2019-01-25 16:14 | disposition home or self-care (01) ==
LOC: ED 15:20
DX: K57.92 Diverticulitis of intestine, part unspecified, without perforation or abscess without bleeding (principal); L72.3 Sebaceous cyst; Z90.49 Acquired absence of other specified parts of digestive tract; R03.0 Elevated blood-pressure reading, without diagnosis of hypertension
CPT/HCPCS: 10060; 10160

== ENCOUNTER 2020-05-05 08:00 | Outpatient (CLI) | payer MEDICAID ==
[2020-05-05 18:47] LABS: BASOPHILS # (AUTO) 0.1 10^3/uL (0.0-0.1); BASOPHILS % (AUTO) 0.7 %; EOSINOPHILS # (AUTO) 0.4 10^3/uL (0.0-0.7); EOSINOPHILS % (AUTO) 3.9 %; HGB - HEMOGLOBIN 15.1 g/dL (12.0-16.0); LYMPHOCYTES % (AUTO) 32.9 %; MEAN CORPUSCULAR HGB CONC 33.3 g/dL (32.0-36.0); MEAN CORPUSCULAR VOLUME 90.3 fL (81.0-99.0); MEAN PLATELET VOLUME 10.6 fL (7.9-10.8); MONOCYTES # (AUTO) 0.5 10^3/uL (0.0-1.0); MONOCYTES % (AUTO) 5.6 %; NEUTROPHILS # (AUTO) 5.1 10^3/uL (1.5-6.6); NEUTROPHILS % (AUTO) 56.3 %; PLT - PLATELET COUNT 314 10^3/uL (130-450); RED BLOOD COUNT 5.03 10^6/uL (4.20-5.40); RED CELL DISTRIBUTION WIDTH 12.6 % (12.0-15.0); WHITE BLOOD COUNT 9.1 x10^3/uL (4.8-10.8)
[2020-05-05 19:00] LABS: ALBUMIN 4.3 g/dL (3.2-5.5); ALBUMIN/GLOBULIN RATIO 1.4 (1.0-2.2); ALKALINE PHOSPHATASE 113 IU/L (42-121); ALT ALANINE AMINOTRANSFERASE 25 IU/L (10-60); AST ASPARTATE AMINOTRANSFERASE 18 IU/L (10-42); BILIRUBIN,TOTAL 0.7 mg/dL (0.2-1.0); BUN - BLOOD UREA NITROGEN 16 mg/dL (6-20); CALCIUM 9.7 mg/dL (8.5-10.3); CARBON DIOXIDE - CO2 24 mmol/L (21-32); CHLORIDE 99 mmol/L (101-111); CHOL/HDL RATIO 6.5 (<4.4); CHOLESTEROL 305 mg/dL; CREATININE 0.8 mg/dL (0.4-1.0); GLUCOSE 182 mg/dL (70-100); HDL CHOLESTEROL 47 mg/dL; TOTAL PROTEIN 7.4 g/dL (6.7-8.2)
[2020-05-05 19:30] LABS: LDL CHOLESTEROL,DIRECT 191 mg/dL; LDLD/HDL RATIO 4.1 (<4.4)
[2020-05-13 18:27] LABS: CALCIUM 9.3 mg/dL (8.5-10.3); CREATININE 0.8 mg/dL (0.4-1.0)
[2020-05-13 18:33] LABS: HEMOGLOBIN A1c% 7.9 % (4.27-6.07)
== END 2020-05-05 23:59 | disposition home or self-care (01) ==
LOC: LAB.WCP 08:00
PROVIDERS: ATTEND Internal Medicine
DX: I10 Essential (primary) hypertension (principal); R73.01 Impaired fasting glucose
CPT/HCPCS: 36415; 80048; 80053; 80061; 82043; 82570; 83036; 83721; 84443; 85025

== ENCOUNTER → 2020-05-13 | Outpatient (CLI) | payer MEDICAID ==
[2020-05-19 11:32] LABS: CREATININE 0.8 mg/dL (0.4-1.0)
[2020-05-19 11:33] LABS: CALCIUM 9.3 mg/dL (8.5-10.3)
[2020-05-19 11:34] LABS: HEMOGLOBIN A1c% 7.9 % (4.27-6.07)
== END ==
LOC: LAB.WCP 08:00
PROVIDERS: ATTEND Internal Medicine
DX: R73.01 Impaired fasting glucose (principal)
CPT/HCPCS: 36415; 80048; 83036

== ENCOUNTER 2020-05-24 15:48 | Outpatient (CLI) | payer MEDICAID ==
--- NOTE | 2020-05-25 12:29 | Mammography Report ---
BILATERAL DIGITAL SCREENING MAMMOGRAM 3D/2D: 05/24/2020 CLINICAL: Routine screening. Comparison is made to exams dated: 11/15/2016 mammogram - [facility], 08/16/2014 mammo gram - [facility], and 06/04/2013 mammogram - [facility]. The tissue of both breasts is predominantly fatty. There are benign calcifications in the left breast. No significant masses, calcifications, or other findings are seen in either breast. There has been no significant interval change. IMPRESSION: BENIGN There is no mammographic evidence of malignancy. A 1 year screening mammogram is recommended. This exam was interpreted at Station ID: [id number]. NOTE: For mammograms, a report in lay terms will be sent to the patient. Approximately 15% of breast malignancies will not be visualized mammographically. In the management of a palpable breast mass, a negative mammogram must not discourage biopsy of a clinically suspicious lesion. Electronically Signed By: Jovani Gore M.D. [facility]:05/24/2020 17:45:51 copy to: Rafi Boyd ACR BI-RADS Category 2: Benign Finding(s) 3342F PARENCHYMAL PATTERN: (F) - The breast(s) demonstrate(s) diffuse fatty replacement. BI-RADS CATEGORY: (2) - 2 RECOMMENDATION: (ANNUAL) - Recommend routine annual screening mammography. [id number] 1 year screening LATERALITY: (B)
== END 2020-05-24 15:49 | disposition home or self-care (01) ==
LOC: DI.N 15:48
DX: Z12.31 Encounter for screening mammogram for malignant neoplasm of breast (principal)

== ENCOUNTER 2020-11-29 08:00 | Outpatient (CLI) | payer MEDICAID ==
[2020-11-29 19:02] LABS: ALT ALANINE AMINOTRANSFERASE 32 IU/L (10-60); BUN - BLOOD UREA NITROGEN 15 mg/dL (6-20); CALCIUM 9.4 mg/dL (8.5-10.3); CARBON DIOXIDE - CO2 22 mmol/L (21-32); CHLORIDE 98 mmol/L (101-111); CHOL/HDL RATIO 3.4 (<4.4); CHOLESTEROL 162 mg/dL; CREATININE 0.8 mg/dL (0.4-1.0); GFR - MDRD 74 (>89); GLUCOSE 176 mg/dL (70-100); HDL CHOLESTEROL 47 mg/dL; LDL CHOLESTEROL,CALCULATED 68 mg/dL; LDL/HDL RATIO 1.4 (<4.4); POTASSIUM 4.2 mmol/L (3.5-5.0); SODIUM 133 mmol/L (135-145); TRIGLYCERIDES 235 mg/dL; VLDL CHOLESTEROL 47 mg/dL
[2020-11-29 19:03] LABS: CREATININE,URINE 54.4 mg/dL; MICROALBUM/CREATININE RATIO,UR 23.9 ug/mg (<30.0); MICROALBUMIN,URINE 1.3 mg/dL (0-300.0)
[2020-11-29 20:34] LABS: ESTIMATED AVERAGE GLUCOSE 200 mg/dL (70-100); HEMOGLOBIN A1c% 8.6 % (4.27-6.07)
== END 2020-11-29 23:59 | disposition home or self-care (01) ==
LOC: LAB.WCP 08:00
PROVIDERS: ATTEND Internal Medicine
DX: E11.9 Type 2 diabetes mellitus without complications (principal)
CPT/HCPCS: 36415; 80048; 80061; 82043; 82570; 83036; 83721; 84460

== ENCOUNTER 2022-06-01 14:33 | Outpatient (CLI) | payer MEDICAID, MEDICARE ==
[2022-06-01 17:40] LABS: BASOPHILS # (AUTO) 0.1 10^3/uL (0.0-0.1); BASOPHILS % (AUTO) 0.7 %; EOSINOPHILS # (AUTO) 0.3 10^3/uL (0.0-0.7); EOSINOPHILS % (AUTO) 2.8 %; HCT - HEMATOCRIT 46.4 % (37.0-47.0); HGB - HEMOGLOBIN 15.6 g/dL (12.0-16.0); LYMPHOCYTES # (AUTO) 3.4 10^3/uL (1.5-3.5); LYMPHOCYTES % (AUTO) 33.7 %; MEAN CORPUSCULAR HEMOGLOBIN 29.2 pg (27.0-31.0); MEAN CORPUSCULAR HGB CONC 33.6 g/dL (32.0-36.0); MEAN CORPUSCULAR VOLUME 86.9 fL (81.0-99.0); MEAN PLATELET VOLUME 10.4 fL (7.9-10.8); MONOCYTES # (AUTO) 0.6 10^3/uL (0.0-1.0); MONOCYTES % (AUTO) 5.8 %; NEUTROPHILS # (AUTO) 5.6 10^3/uL (1.5-6.6); NEUTROPHILS % (AUTO) 56.7 %; PLT - PLATELET COUNT 334 10^3/uL (130-450); RED BLOOD COUNT 5.34 10^6/uL (4.20-5.40); RED CELL DISTRIBUTION WIDTH 12.8 % (12.0-15.0); WHITE BLOOD COUNT 9.9 x10^3/uL (4.8-10.8)
[2022-06-01 18:00] LABS: ALBUMIN 4.4 g/dL (3.2-5.5); ALBUMIN/GLOBULIN RATIO 1.3 (1.0-2.2); ALKALINE PHOSPHATASE 134 IU/L (42-121); ALT ALANINE AMINOTRANSFERASE 23 IU/L (10-60); AST ASPARTATE AMINOTRANSFERASE 19 IU/L (10-42); BILIRUBIN,TOTAL 1.1 mg/dL (0.2-1.0); BUN - BLOOD UREA NITROGEN 15 mg/dL (6-20); CALCIUM 9.4 mg/dL (8.5-10.3); CARBON DIOXIDE - CO2 21 mmol/L (21-32); CHLORIDE 96 mmol/L (101-111); CHOL/HDL RATIO 9.6 (<4.4); CHOLESTEROL 363 mg/dL; CREATININE 0.9 mg/dL (0.4-1.0); GFR - MDRD 64 (>89); GLUCOSE 336 mg/dL (70-100); HDL CHOLESTEROL 38 mg/dL; SODIUM 129 mmol/L (135-145); TOTAL PROTEIN 7.8 g/dL (6.7-8.2); TRIGLYCERIDES 846 mg/dL
[2022-06-01 18:03] LABS: THYROID STIMULATING HORMONE 2.73 uIU/mL (0.34-5.60)
[2022-06-01 19:01] LABS: LDL CHOLESTEROL,DIRECT 180 mg/dL; LDLD/HDL RATIO 4.7 (<4.4)
[2022-06-01 19:09] LABS: MICROALBUM/CREATININE RATIO,UR 541.5 ug/mg (<30.0); MICROALBUMIN,URINE 153.8 mg/dL (0-300.0)
[2022-06-01 21:57] LABS: ESTIMATED AVERAGE GLUCOSE 312 mg/dL (70-100); HEMOGLOBIN A1c% 12.5 % (4.27-6.07)
== END 2022-06-01 14:34 | disposition home or self-care (01) ==
LOC: LAB.N 14:33
PROVIDERS: ATTEND Internal Medicine
DX: I10 Essential (primary) hypertension (principal); E11.9 Type 2 diabetes mellitus without complications; F90.9 Attention-deficit hyperactivity disorder, unspecified type
CPT/HCPCS: 36415; 80050; 80061; 82043; 82570; 83036; 83721

== ENCOUNTER 2022-09-14 07:50 | Outpatient (CLI) | payer MEDICARE, MEDICAID ==
[2022-09-14 12:03] LABS: BASOPHILS # (AUTO) 0.1 10^3/uL (0.0-0.1); BASOPHILS % (AUTO) 0.7 %; EOSINOPHILS # (AUTO) 0.3 10^3/uL (0.0-0.7); EOSINOPHILS % (AUTO) 2.5 %; HCT - HEMATOCRIT 45.8 % (37.0-47.0); LYMPHOCYTES # (AUTO) 3.9 10^3/uL (1.5-3.5); LYMPHOCYTES % (AUTO) 37.3 %; MEAN CORPUSCULAR HEMOGLOBIN 29.3 pg (27.0-31.0); MEAN CORPUSCULAR HGB CONC 32.8 g/dL (32.0-36.0); MEAN CORPUSCULAR VOLUME 89.5 fL (81.0-99.0); MEAN PLATELET VOLUME 10.3 fL (7.9-10.8); MONOCYTES # (AUTO) 0.6 10^3/uL (0.0-1.0); MONOCYTES % (AUTO) 5.7 %; NEUTROPHILS # (AUTO) 5.6 10^3/uL (1.5-6.6); NEUTROPHILS % (AUTO) 53.5 %; PLT - PLATELET COUNT 326 10^3/uL (130-450); RED BLOOD COUNT 5.12 10^6/uL (4.20-5.40); RED CELL DISTRIBUTION WIDTH 13.2 % (12.0-15.0); WHITE BLOOD COUNT 10.5 x10^3/uL (4.8-10.8)
[2022-09-14 13:12] LABS: THYROID STIMULATING HORMONE 3.69 uIU/mL (0.34-5.60)
[2022-09-14 13:18] LABS: ALBUMIN 4.7 g/dL (3.2-5.5); ALBUMIN/GLOBULIN RATIO 1.5 (1.0-2.2); ALKALINE PHOSPHATASE 111 IU/L (42-121); ALT ALANINE AMINOTRANSFERASE 22 IU/L (10-60); AST ASPARTATE AMINOTRANSFERASE 17 IU/L (10-42); BILIRUBIN,TOTAL 0.5 mg/dL (0.2-1.0); BUN - BLOOD UREA NITROGEN 20 mg/dL (6-20); CALCIUM 9.3 mg/dL (8.5-10.3); CARBON DIOXIDE - CO2 25 mmol/L (21-32); CHLORIDE 100 mmol/L (101-111); CHOL/HDL RATIO 4.8 (<4.4); CHOLESTEROL 196 mg/dL; CREATININE 0.8 mg/dL (0.4-1.0); GFR - MDRD 74 (>89); GLUCOSE 161 mg/dL (70-100); HDL CHOLESTEROL 41 mg/dL; SODIUM 138 mmol/L (135-145); TOTAL PROTEIN 7.9 g/dL (6.7-8.2); TRIGLYCERIDES 427 mg/dL
[2022-09-14 13:22] LABS: CREATININE,URINE 112.8 mg/dL; MICROALBUM/CREATININE RATIO,UR 26.6 ug/mg (<30.0)
[2022-09-14 13:23] LABS: ESTIMATED AVERAGE GLUCOSE 200 mg/dL (70-100); HEMOGLOBIN A1c% 8.6 % (4.27-6.07)
[2022-09-14 14:48] LABS: LDL CHOLESTEROL,DIRECT 100 mg/dL; LDLD/HDL RATIO 2.4 (<4.4)
== END 2022-09-14 07:51 | disposition home or self-care (01) ==
LOC: LAB.N 07:50
PROVIDERS: ATTEND Internal Medicine
DX: E78.5 Hyperlipidemia, unspecified (principal); E11.9 Type 2 diabetes mellitus without complications; F90.9 Attention-deficit hyperactivity disorder, unspecified type
CPT/HCPCS: 36415; 80053; 80061; 82043; 82570; 83036; 83721; 84443; 85025

== ENCOUNTER 2022-09-24 12:31 | Outpatient (CLI) | payer MEDICARE, MEDICAID ==
--- NOTE | 2022-09-25 12:08 | Mammography Report ---
BILATERAL DIGITAL SCREENING MAMMOGRAM 3D/2D: 09/24/2022 CLINICAL: Routine screening. Comparison is made to exams dated: 05/24/2020 mammogram - [facility], 08/07/2018 mamm [facility], 11/15/2016 mammogram - [facility], 08/16/2014 mammogram - [facility], 06/04/2013 mammogram, and 02/04/2012 mammogram - [facility]. Both breasts are almost entirely fatty (category a/<25% glandular tissue). There is a benign calcification in the left breast. No significant masses, calcifications, or other findings are seen in either breast. There has been no significant interval change. IMPRESSION: BENIGN There is no mammographic evidence of malignancy. A 1 year screening mammogram is recommended. Based on the Tyrer Cuzick model (a risk assessment model) the patients lifetime risk is 5.2% and her 10 year risk is 1.9%. According to the ACR, ACS, and NCCN guidelines, an annual breast MRI exam teresa g with mammogram is recommended if the patients lifetime risk is 20% or greater. This exam was interpreted at Station ID: [id number]. NOTE: For mammograms, a report in lay terms will be sent to the patient. Approximately 15% of breast malignancies will not be visualized mammographically. In the management of a palpable breast mass, a negative mammogram must not discourage biopsy of a clinically suspicious lesion. Electronically Signed By: Elli butt/andrea:09/24/2022 16:39:31 copy to: Rafi Boyd letter sent: No_Letter ACR BI-RADS Category 2: Benign Finding(s) 3342F PARENCHYMAL PATTERN: (F) - The breast(s) demonstrate(s) diffuse fatty replacement. BI-RADS CATEGORY: (2) - 2 Mammogram [id number] 1 year screening LATERALITY: (B)
== END 2022-09-24 12:32 | disposition home or self-care (01) ==
LOC: DI.N 12:31
PROVIDERS: ATTEND Internal Medicine
DX: Z12.31 Encounter for screening mammogram for malignant neoplasm of breast (principal)

== ENCOUNTER 2023-03-19 12:07 | Outpatient (CLI) | payer MEDICARE, MEDICAID ==
[2023-03-19 18:06] LABS: ALBUMIN 4.6 g/dL (3.2-5.5); ALKALINE PHOSPHATASE 128 IU/L (42-121); ALT ALANINE AMINOTRANSFERASE 27 IU/L (10-60); AST ASPARTATE AMINOTRANSFERASE 15 IU/L (10-42); BILIRUBIN,TOTAL 0.5 mg/dL (0.2-1.0); BUN - BLOOD UREA NITROGEN 14 mg/dL (6-20); CALCIUM 10.2 mg/dL (8.5-10.3); CARBON DIOXIDE - CO2 26 mmol/L (21-32); CHLORIDE 104 mmol/L (101-111); CHOL/HDL RATIO 4.2 (<4.4); CHOLESTEROL 182 mg/dL; CREATININE 0.8 mg/dL (0.6-1.3); ESTIMATED AVERAGE GLUCOSE 180 mg/dL (70-100); GFR - MDRD 73 (>89); GLUCOSE 137 mg/dL (74-104); HDL CHOLESTEROL 43 mg/dL; HEMOGLOBIN A1c% 7.9 % (4.27-6.07); LDL CHOLESTEROL,CALCULATED 81 mg/dL; LDL/HDL RATIO 1.9 (<4.4); POTASSIUM 4.1 mmol/L (3.5-4.5); SODIUM 138 mmol/L (135-145); TOTAL PROTEIN 6.9 g/dL (6.4-8.9); TRIGLYCERIDES 291 mg/dL (48-352); VLDL CHOLESTEROL 58 mg/dL
[2023-03-19 18:12] LABS: CREATININE,URINE 129.2 mg/dL; MICROALBUM/CREATININE RATIO,UR 38.7 ug/mg (<30.0)
[2023-03-19 18:22] LABS: BASOPHILS # (AUTO) 0.1 10^3/uL (0.0-0.1); BASOPHILS % (AUTO) 0.7 %; EOSINOPHILS # (AUTO) 0.6 10^3/uL (0.0-0.7); EOSINOPHILS % (AUTO) 6.2 %; HCT - HEMATOCRIT 46.9 % (37.0-47.0); LYMPHOCYTES # (AUTO) 3.7 10^3/uL (1.5-3.5); LYMPHOCYTES % (AUTO) 37.2 %; MEAN CORPUSCULAR HEMOGLOBIN 29.2 pg (27.0-31.0); MEAN CORPUSCULAR VOLUME 91.4 fL (81.0-99.0); MEAN PLATELET VOLUME 10.3 fL (7.9-10.8); MONOCYTES # (AUTO) 0.5 10^3/uL (0.0-1.0); MONOCYTES % (AUTO) 5.4 %; NEUTROPHILS # (AUTO) 4.9 10^3/uL (1.5-6.6); NEUTROPHILS % (AUTO) 50.1 %; PLT - PLATELET COUNT 326 10^3/uL (130-450); RED BLOOD COUNT 5.13 10^6/uL (4.20-5.40); RED CELL DISTRIBUTION WIDTH 13.7 % (12.0-15.0); WHITE BLOOD COUNT 9.8 x10^3/uL (4.8-10.8)
[2023-03-19 18:23] LABS: THYROID STIMULATING HORMONE 1.96 uIU/mL (0.34-5.60)
== END 2023-03-19 12:08 | disposition home or self-care (01) ==
LOC: LAB.N 12:07
PROVIDERS: ATTEND Internal Medicine
DX: I10 Essential (primary) hypertension (principal); E78.5 Hyperlipidemia, unspecified; F31.81 Bipolar II disorder; E11.9 Type 2 diabetes mellitus without complications
CPT/HCPCS: 36415; 80053; 80061; 82043; 82570; 83036; 83721; 84443; 85025

== ENCOUNTER 2023-09-11 08:26 | Outpatient (CLI) | payer MEDICARE, MEDICAID ==
[2023-09-11 12:10] LABS: BASOPHILS # (AUTO) 0.1 10^3/uL (0.0-0.1); BASOPHILS % (AUTO) 0.8 %; EOSINOPHILS # (AUTO) 0.5 10^3/uL (0.0-0.7); EOSINOPHILS % (AUTO) 4.8 %; HCT - HEMATOCRIT 46.3 % (37.0-47.0); LYMPHOCYTES # (AUTO) 3.7 10^3/uL (1.5-3.5); LYMPHOCYTES % (AUTO) 37.2 %; MEAN CORPUSCULAR HEMOGLOBIN 29.2 pg (27.0-31.0); MEAN CORPUSCULAR HGB CONC 32.4 g/dL (32.0-36.0); MEAN CORPUSCULAR VOLUME 90.3 fL (81.0-99.0); MEAN PLATELET VOLUME 10.3 fL (7.9-10.8); MONOCYTES # (AUTO) 0.6 10^3/uL (0.0-1.0); MONOCYTES % (AUTO) 6.4 %; NEUTROPHILS % (AUTO) 50.4 %; PLT - PLATELET COUNT 306 10^3/uL (130-450); RED BLOOD COUNT 5.13 10^6/uL (4.20-5.40); RED CELL DISTRIBUTION WIDTH 13.1 % (12.0-15.0); WHITE BLOOD COUNT 9.9 x10^3/uL (4.8-10.8)
[2023-09-11 12:45] LABS: ALBUMIN 4.5 g/dL (3.2-5.5); ALBUMIN/GLOBULIN RATIO 1.6 (1.0-2.2); ALKALINE PHOSPHATASE 114 IU/L (42-121); ALT ALANINE AMINOTRANSFERASE 22 IU/L (10-60); AST ASPARTATE AMINOTRANSFERASE 13 IU/L (10-42); BILIRUBIN,TOTAL 0.4 mg/dL (0.2-1.0); BUN - BLOOD UREA NITROGEN 16 mg/dL (6-20); CALCIUM 9.8 mg/dL (8.5-10.3); CARBON DIOXIDE - CO2 27 mmol/L (21-32); CHLORIDE 104 mmol/L (101-111); CHOL/HDL RATIO 3.6 (<4.4); CHOLESTEROL 157 mg/dL; CREATININE 0.8 mg/dL (0.6-1.3); GFR - MDRD 73 (>89); GLUCOSE 154 mg/dL (74-104); HDL CHOLESTEROL 44 mg/dL; LDL CHOLESTEROL,CALCULATED 70 mg/dL; LDL/HDL RATIO 1.6 (<4.4); POTASSIUM 4.6 mmol/L (3.5-4.5); SODIUM 137 mmol/L (135-145); TOTAL PROTEIN 7.3 g/dL (6.4-8.9); TRIGLYCERIDES 213 mg/dL (48-352); VLDL CHOLESTEROL 43 mg/dL
[2023-09-11 12:53] LABS: CREATININE,URINE 47.1 mg/dL; MICROALBUM/CREATININE RATIO,UR 21.2 ug/mg (<30.0)
[2023-09-11 13:01] LABS: THYROID STIMULATING HORMONE 1.59 uIU/mL (0.34-5.60)
[2023-09-11 13:05] LABS: ESTIMATED AVERAGE GLUCOSE 180 mg/dL (70-100); HEMOGLOBIN A1c% 7.9 % (4.27-6.07)
== END 2023-09-11 08:27 | disposition home or self-care (01) ==
LOC: LAB.N 08:26
PROVIDERS: ATTEND Internal Medicine
DX: E11.9 Type 2 diabetes mellitus without complications (principal); E78.5 Hyperlipidemia, unspecified; F31.81 Bipolar II disorder; I10 Essential (primary) hypertension
CPT/HCPCS: 36415; 80053; 80061; 82043; 82570; 83036; 83721; 84443; 85025